=== PATIENT | female | born 1935 | race Caucasian/White ===

== ENCOUNTER 2018-03-22 06:18 | Inpatient (IN) ==
--- NOTE | 2018-03-13 13:35 | Anesthesiology Consultation ---
Date of Service March 13, 2018 Assessment & Plan (1) Encounter for pre-operative examination: Plan: Cardiology clearance 02/12/2018: "Currently she is stable from a cardiac standpoint to proceed with planned surgery. Cardiac testing would not be required prior to surgery. Would recommend continue beta-fab throughout the perioperative period." Chart Review Chart Review: Acceptable Risk for Surgery and Patient seen in Pre Admission Testing Teaching & Discussion Instructed NPO after midnight before surgery, except medications with 15 cc of water. Medication instructions provided according to the PAT guidelines. History Surgery Operation Date: 03/22/18 08:20 Proposed Procedures p Right Constrained Total Hip Arthroplasty - Faustino Larios MD Height/Weight Height: 5 ft 1 in Weight: 75.9 kg Allergies Allergy/AdvReac Type Severity Reaction Status Date / Time chlorhexidine Allergy Severe SEVERE Verified 03/13/18 14:11 HIVES WITH CHLORAPREP adhesive tape AdvReac Unknown Rash Verified 03/06/18 10:40 codeine AdvReac Unknown constipatio Verified 03/06/18 10:37 n morphine AdvReac Unknown gi upsets Verified 03/06/18 10:40 Medications Home Medications Medication Instructions Recorded Confirmed Last Taken Wobenzyme 3 tab PO QAM 03/06/18 03/06/18 Unknown albuterol sulfate 0.63 mg INHALATION BID 03/06/18 03/06/18 Unknown aspirin [Aspirin Low Dose] 81 mg PO QAM 03/06/18 03/06/18 Unknown carvedilol 3.125 mg PO BID 03/06/18 03/06/18 Unknown cetirizine 5 mg PO QAM 03/06/18 03/06/18 Unknown coenzyme Q10 [CoQ-10] 600 mg PO QAM 03/06/18 03/06/18 Unknown diclofenac sodium 75 mg PO BID 03/06/18 03/06/18 Unknown diclofenac sodium [Voltaren] 2 g TOPICAL QID PRN 03/06/18 03/06/18 Unknown elderberry fruit and flower 1 cap PO QAM 03/06/18 03/06/18 Unknown esomeprazole magnesium [Nexium] 40 mg PO QAM 18 03/06/18 Unknown fish,bora,flax oils-om3,6,9no1 1 tab PO QAM 03/06/18 03/06/18 Unknown [[place] 3-6-9] fluticasone-salmeterol [Advair HFA] 2 puff INHALATION BID 03/06/18 03/06/18 Unknown [id number] 1 tab PO QAM 03/06/18 03/06/18 Unknown [Muyidh-Kvkhi-UJQ (with antiox)] levalbuterol tartrate [Xopenex HFA] 1 inh INHALATION Q6H PRN 03/06/18 03/06/18 Unknown meclizine 12.5 mg PO TID PRN 03/06/18 03/06/18 Unknown montelukast [Singulair] 10 mg PO PM 03/06/18 03/06/18 Unknown multivitamin 1 tab PO QAM 03/06/18 03/06/18 Unknown polyethylene glycol 3350 [Miralax] 1 tbsp PO QAM 03/06/18 03/06/18 Unknown tiotropium bromide [Spiriva with 2 puff INHALATION QAM 03/06/18 03/06/18 Unknown HandiHaler] vitamin K2 40 mcg PO QAM 03/06/18 03/06/18 Unknown mirabegron [Myrbetriq] 25 mg PO HS 03/13/18 03/13/18 Unknown Past Medical History Medical History Afib Paroxysmal. Pt is anticoagulated with ASA 81mg only. She has declined additional anticoagulation from cardiology and is aware of increased risk. Asthma Chronic obstructive pulmonary disease Daily Spiriva and Advair, + albuterol BID Hx of gastroesophageal reflux (GERD) Hx of hiatal hernia Hx of vertigo Nocturia Osteoarthritis Urgency-frequency syndrome States was on medicine to help , but no longer. Also has stress incontinence Past Surgical History Surgical History History of ankle surgery left History of bunionectomy of left great toe History of esophageal dilatation History of hysterectomy ovaries remain Hx of bladder repair surgery Hx of cataract Hx of colonoscopy Hx of rotator cuff surgery right Past Anesthesia History No Hx of Anesthesia Complications (other than PONV) and No Family Hx of Anesthesia Complications (granddaughter PONV) History of PONV Yes (Severe, multiple episodes.) Motion Sickness Screening History of Motion Sickness: No Social History Smoking Status: Never smoker Do You Dip or Chew Tobacco: No Hx Alcohol Use: Yes Alcohol type: beer alcohol intake frequency: holidays/special occasions only Hx Substance Use: No Exercise / Class Metabolic Activity III < 4 Walking/Shop/Light housework (no SOB or CP with ambulation. [place] with walking up hill to garden.) Review of Systems Pt denies any recent chest pain, shortness of breath, palpitations, cough, fever or URI. +occ palpitations, +sinus congestion. Physical Exam Vital Signs BP: 156/84 P: 62bpm SPO2: 96% RA T: 98.1 F R: 16 ENMT Mouth: + dentures (partial upper); no chipped teeth and no loose teeth Thyromental Distance: > or= 3.5 Finger Breadths (3.5) Mallampati Class: I Neck normal visual inspection; neck extension not limited Respiratory Auscultation: lungs clear to auscultation bilaterally Cardiovascular Rate/Rhythm: regular rate and regular rhythm Heart Sounds: + murmur (I/ INDY RSB loudest) Vessels: no carotid bruit Extremities: no edema Testing Electrocardiogram Date: 03/13/18 Findings: + SB @ (57) and + RBBB Chest X-Ray Date: 03/13/18 1. Mild cardiomegaly. 2. Trace bilateral pleural effusions and bibasilar linear densities. This favors subsegmental atelectasis. 3. Mild emphysema. Echocardiogram Date: 07/05/17 EF: 60% Mild aortic valve stenosis (SHRERIE 2.73 cm, mean gradient 11.2 mmHg). Normal left ventricular size with normal EF. Mild and perhaps moderate aortic insufficiency. Uniformly increased forward flow velocities suggesting a hyperdynamic circulatory state. Prominent pressures upper limits of normal suggesting high cardiac output. Laboratory Results 03/13/18 14:38 03/13/18 14:38 Blood Type A Negative 03/13/18 14:38 Antibody Screen POSITIVE A 03/13/18 14:38 PT 10.2 Seconds (9.0-12.0) 03/13/18 14:38 INR 1.0 (0.9-1.1) 03/13/18 14:38 APTT 25.9 Seconds (21.0-31.0) 03/13/18 14:38 Hemoglobin A1c 5.9 % (4.5-5.6) H 03/13/18 14:38 Urine Color Yellow 03/13/18 Unknown Urine Appearance Clear (Clear) 03/13/18 Unknown Urine pH 7.0 (4.5-7.5) 03/13/18 Unknown Ur Specific [place] 1.008 (1.000-1.030) 03/13/18 Unknown Urine Protein Negative (Negative) 03/13/18 Unknown Urine Glucose (UA) Negative (Negative) 03/13/18 Unknown Urine Ketones Negative (Negative) 03/13/18 Unknown Urine Nitrite Negative (Negative) 03/13/18 Unknown Ur Leukocyte Esterase Negative (Negative) 03/13/18 Unknown *Spoke to Matias at [facility] re: positive antibodies. No further action needed at this time.
--- NOTE | 2018-03-13 14:35 | PAT Medication Instructions ---
Medication Instructions Date of Service March 13, 2018 Home Medications Wobenzyme 3 tab PO QAM albuterol sulfate 0.63 mg INHALATION BID aspirin [Aspirin Low Dose] 81 mg PO QAM carvedilol 3.125 mg PO BID cetirizine 5 mg PO QAM coenzyme Q10 [CoQ-10] 600 mg PO QAM diclofenac sodium 75 mg PO BID diclofenac sodium [Voltaren] 2 g TOPICAL QID PRN elderberry fruit and flower 1 cap PO QAM esomeprazole magnesium [Nexium] 40 mg PO QAM [[place] 3-6-9] 1 tab PO QAM fluticasone-salmeterol [Advair HFA] 2 puff INHALATION BID [id number] 1 tab PO QAM levalbuterol tartrate [Xopenex HFA] 1 inh INHALATION Q6H PRN meclizine 12.5 mg PO TID PRN montelukast [Singulair] 10 mg PO PM multivitamin 1 tab PO QAM polyethylene glycol 3350 [Miralax] 1 tbsp PO QAM tiotropium bromide [Spiriva] 2 puff INHALATION QAM vitamin K2 40 mcg PO QAM mirabegron [Myrbetriq] 25 mg PO HS ASK your surgeon for instructions diclofenac sodium 75 mg PO BID diclofenac sodium [Voltaren] 2 g TOPICAL QID PRN STOP taking 2 weeks before surgery Wobenzyme 3 tab PO QAM coenzyme Q10 [CoQ-10] 600 mg PO QAM elderberry fruit and flower 1 cap PO QAM [[place] 3-6-9] 1 tab PO QAM [id number] 1 tab PO QAM *If surgery is within 2 weeks, stop taking as soon as possible. DO NOT take the morning of surgery cetirizine 5 mg PO QAM multivitamin 1 tab PO QAM polyethylene glycol 3350 [Miralax] 1 tbsp PO QAM vitamin K2 40 mcg PO QAM Take morning of surgery With a small sip of water, OTHERWISE NOTHING TO EAT OR DRINK AFTER MIDNIGHT: albuterol sulfate 0.63 mg INHALATION BID aspirin [Aspirin Low Dose] 81 mg PO QAM carvedilol 3.125 mg PO BID esomeprazole magnesium [Nexium] 40 mg PO QAM fluticasone-salmeterol [Advair HFA] 2 puff INHALATION BID levalbuterol tartrate [Xopenex HFA] 1 inh INHALATION Q6H PRN (if needed, and bring with you to the hospital) meclizine 12.5 mg PO TID PRN (if needed) tiotropium bromide [Spiriva] 2 puff INHALATION QAM Take evening before surgery albuterol sulfate 0.63 mg INHALATION BID carvedilol 3.125 mg PO BID fluticasone-salmeterol [Advair HFA] 2 puff INHALATION BID levalbuterol tartrate [Xopenex HFA] 1 inh INHALATION Q6H PRN (if needed) meclizine 12.5 mg PO TID PRN (if needed) montelukast [Singulair] 10 mg PO PM mirabegron [Myrbetriq] 25 mg PO HS Other Notes If you have any questions please call us at [phone] or [phone] or [phone] or [phone]
[2018-03-13 15:00] LABS: Basophils # (auto) 0.02 K/uL (0-0.2); Basophils % (auto) 0.4 %; Eosinophils # (auto) 0.08 K/uL (0-0.5); Eosinophils % (auto) 1.6 %; Hematocrit (blood only) 39.3 % (42-52); Hemoglobin 12.5 g/dL (14.0-18.0); Lymphocytes # (auto) 1.33 K/uL (1.2-3.4); Lymphocytes % (auto) 26.2 %; Mean Corpuscular Hgb Conc 31.8 g/dL (32-36); Mean Platelet Volume 9.9 fL (7.4-10.4); Monocytes # (auto) 0.54 K/uL (0.11-0.59); Monocytes % (auto) 10.6 %; Neutrophils # (auto) 3.11 K/uL (1.4-6.5); Neutrophils % (auto) 61.2 %; Platelet Count 176 K/uL (130-400); RDW Coefficient of Variation 15.2 % (11.5-14.5); RDW Standard Deviation 51.2 fL (36.4-46.3); Red Blood Count 4.27 M/uL (4.7-6.1); White Blood Count 5.08 K/uL (4.8-10.8)
[2018-03-13 15:04] LABS: Appearance Urine Clear (Clear); Bilirubin Urine Negative (Negative); Color Urine Yellow; Glucose Urine UA Negative (Negative); Ketones Urine Negative (Negative); Leukocyte Esterase Urine Negative (Negative); Nitrite Urine Negative (Negative); Protein Urine Negative (Negative); Specific Gravity Urine 1.008 (1.000-1.030); Urobilinogen Urine Negative (Negative)
--- NOTE | 2018-03-13 15:15 | XRay Report ---
XR chest Pre-admission PA/Lat HISTORY: Preop. COMPARISON: None. FINDINGS: The heart is mildly enlarged. No pneumothorax. The lungs are mildly hyperexpanded with apic al predominant emphysema changes. Bibasilar linear densities and trace bilateral pleural effusions. T he upper lung zones remain clear. IMPRESSION: 1. Mild cardiomegaly. 2. Trace bilateral pleural effusions and bibasilar linear densities. This favors subsegmental atelect asis. 3. Mild emphysema. Electronically signed by: Juan Moon M.D. 03/13/2018 3:13 PM
[2018-03-13 15:19] LABS: Partial Thromboplastin Time 25.9 Seconds (21.0-31.0); Prothrombin Time 10.2 Seconds (9.0-12.0)
[2018-03-13 15:53] LABS: Albumin Level 3.5 gm/dl (3.4-5.0); Calcium 9.1 mg/dl (8.5-10.1); Creatinine Clr Calc Pharmacy 78.8 ml/min; Est GFR (African American) 106.3; Est GFR (Non-African American) 91.7; Potassium 4.2 mmol/L (3.5-5.1)
[2018-03-14 06:05] LABS: Estimated Average Glucose 123 mg/dl
--- NOTE | 2018-03-21 13:03 | History and Physical Report ---
DATE OF ADMISSION: 03/22/2018 CHIEF COMPLAINT: Right hip pain. HISTORY OF PRESENT ILLNESS: The patient is an 82-year-old female seen and evaluated in our office for right hip pain and disability. She had an MRI which was just consistent with osteoarthritis. PAST MEDICAL HISTORY: Heart murmur, asthma, COPD. PAST SURGICAL HISTORY: Unknown. MEDICATIONS: Singulair 10 mg daily, multivitamin daily, glucosamine and chondroitin daily, atenolol 50 mg daily, omega-3 fatty acid 1000 mg daily, cetirizine 10 mg daily, aspirin 81 mg daily, Spiriva 1 inhalation daily, Xopenex 2 puffs q. 6 hours p.r.n., Voltaren gel, Advair 2 puffs 2 times daily, CoQ10 100 mg daily, carvedilol 3.125 mg 2 times daily. ALLERGIES: MORPHINE, ADHESIVES, LATEX. SOCIAL HISTORY AND REVIEW OF SYSTEMS: Noncontributory. PHYSICAL EXAMINATION: GENERAL: Well-nourished, well-developed elderly female who appears her stated age. HEENT: Normocephalic, atraumatic, extraocular movements intact, oropharynx pink and moist. NECK: Supple without adenopathy. LUNGS: Clear to auscultation bilaterally. HEART: Regular rate and rhythm. ABDOMEN: Soft, nontender, nondistended. EXTREMITIES: The upper extremities are within normal limits. The right hip demonstrates limited range of motion. There is limitation of active and passive internal/external rotation with pain at end range. X-RAYS: X-rays were reviewed. She has moderately severe osteoarthritis with near complete loss of the joint space. There are osteophytes about her acetabulum. ASSESSMENT: Right hip degenerative joint disease. PLAN: Risks versus benefits were discussed, consent was obtained. The patient's primary care physician is Dr. Saleh. We will proceed with right total hip arthroplasty as indicated. The patient desires to proceed with a constrained hip arthroplasty due to a family member having a problem with hip dislocation.
[~2018-03-22 06:18] MED LIST: ACETAMINOPHEN 500 MG TAB PO SCH; CEFAZOLIN 1000MG 1,000 MG/7.5 ML SYR IV SCH; CeleBREX 200 MG CAP PO SCH; FAMOTIDINE 20 MG TAB PO SCH; GABAPENTIN 300 MG PO SCH; METOCLOPRAMIDE HCL 10 MG TABLET PO SCH; ROPIVACAINE 0.5% HCL/PF 150 MG, BUPIVACAINE 0.5% MPF 30 ML, EPINEPHrine 30MG/30ML (OR U... INFIL SCH; dexAMETHasone 4 MG TAB PO SCH
[2018-03-22] MEDS ORDERED: BUPIVACAINE 0.5 % 5 MG/1 ML PF 10ML VIAL ONE (06:30)
[2018-03-22] MEDS: LR 500ML BOLUS, THEN 15ML/HR IV SCH ×3 (07:02→15:09)
[2018-03-22] MEDS ORDERED: fentaNYL citrate 100 MCG/2 ML VIAL IV PRN (07:35)
[2018-03-22] MEDS ORDERED: ATROPINE SULFATE 0.1 MG/ML 5ML SYR IV PRN (07:35)
[2018-03-22] MEDS ORDERED: ePHEDrine sulfate 50 MG/ML AMP IV PRN (07:35)
[2018-03-22] MEDS ORDERED: LABETALOL HCL IV 5 MG/ML 20ML IV PRN (07:35)
[2018-03-22] MEDS ORDERED: PHENYLEPHRINE 100MCG/ML 5ML SYR IV PRN (07:35)
[2018-03-22] MEDS ORDERED: ONDANSETRON INJ 2 MG/ML 2 ML VIAL IV PRN ×2 (07:35→12:32)
[2018-03-22] MEDS ORDERED: MIDAZOLAM HCL 1 MG/ML 2ML VIAL ONE (07:39)
[2018-03-22] MEDS ORDERED: fentaNYL citrate 100 MCG/2 ML VIAL ONE (07:39)
--- NOTE | 2018-03-22 08:00 | History & Physical Bridge Note ---
Date of Service March 22, 2018 History & Physical Bridge Note I have examined the patient, reviewed the History & Physical and in the interval since the performance of the History & Physical I have noted the following changes of clinical significance: no changes noted
[2018-03-22] MEDS ORDERED: ORTHO JOINT ANESTHETIC ONE (09:10)
[2018-03-22] MEDS ORDERED: POVIDONE-IODINE OP SOLN 30 ML BTL ONE (09:10)
[2018-03-22] MEDS ORDERED: BACITRACIN INJ 50,000 UNIT VIAL ONE (09:10)
[2018-03-22] MEDS ORDERED: ONDANSETRON INJ 2 MG/ML 2 ML VIAL ONE (10:03)
[2018-03-22] MEDS ORDERED: DEXAMETHASONE SOD INJ 4 MG/ML VIAL ONE (10:03)
--- NOTE | 2018-03-22 10:44 | Operative Report ---
Post Operative Report Date of Surgery March 22, 2018 Pre & Post Diagnosis Operation Date: 03/22/18 09:35 Pre-Op Diagnosis: Right Hip Degenerative Joint Disease Post-Op Diagnosis: Right Hip Degenerative Joint Disease Procedure Operation Date: 03/22/18 09:35 Actual Procedures p Right Constrained Total Hip Arthroplasty(Right) - Faustino Larios MD Surgeon Faustino Larios MD Planning Manager Marija Estimated Blood Loss 100 Findings Consistent with Post-Op Diagnosis Specimens Femoral head Anesthesia Type Spinal Complications none Disposition Accompanied Patient To Recovery: No Disposition: Recovery Room Indications Hip pain Description of Procedure Patient was placed in the left lateral decubitus position the right hip was prepped and draped in usual sterile manner. A Suhail Langenbeck incision was made subcutaneous tissue was sharply dissected lateral cartilages hemostasis. Fascia site was incised throughout the length of the wound and a partial tear of the hip abductors were noted. A stitch was placed beneath the piriformis and short external rotators and these were divided from the posterior aspect of the femur using electrocautery the capsule was incised a large hip effusion was noted and drained. The hip was dislocated using flexion abduction and internal rotation. Assisting in the dislocation was a Trevino elevator. The femoral neck was osteotomized at the appropriate level and the femoral head was removed. Degenerative changes in excess of x-ray changes was noted. Extension of the acetabulum where the retractors were placed in the labrum and capsule were removed were carried up to size 52. Impacted in position and fixed using a single 30 mm cancellous bone screw. Stable fixation was noted. The attention was then was again turned to the femur where a box osteotome was used to gain access to the femoral canal. A tapered canal finder was utilized as well as a lateralizing reamer and sequential aspirins were taken up to a size 3. Gave good fit and fill. The trial cup for the constrained liner was placed and the hip was relocated using a 22 mm femoral head and was found to have good reproduction of soft tissue tension and stability. The trial was dislocated rasp was removed trial cup was removed and the hip was irrigated the acetabular liner was cleared of blood and debris and the femoral acetabulum was impacted into position. The femur and a 22 mm head were impacted in position relocated in the constrained liner. Produced a stable and solid construct the wound was thoroughly irrigated once again periarticular joint mix was injected piriformis was repaired to the hip abductors using #1 Vicryl Hemovac drain was placed particular injection was again placed as well as the Betadine soap and the fascia was closed over Hemovac drain. #1 Vicryl used to close close the fascia subcutaneous tissue was closed using 0 Dexon skin was closed with the plan sterile dressing of Adaptic 4 x 4's ABDs and foam tape was applied. Patient tolerated the procedure well. I attest to the content of the Intraoperative Record and any orders documented therein. Any exceptions are noted below.
--- NOTE | 2018-03-22 11:48 | XRay Report ---
XR hip 1V RT w pelvis CLINICAL HISTORY: Postoperative evaluation. COMPARISON: None FINDINGS: Alignment of the total right hip arthroplasty is anatomic. There is an acetabular screw, s kin dora and drains. There is no fracture or unexpected radiopaque foreign body. IMPRESSION: Expected findings following total right hip arthroplasty. Electronically signed by: Ronak Constantino M.D. 03/22/2018 11:47 AM
--- NOTE | 2018-03-22 11:58 | Anesthesiology Progress Note ---
Date of Service March 22, 2018 Anesthesia Post Procedure Vital Signs Vital Signs: Temp Pulse Pulse Resp BP Pulse Ox 03/22/18 11:50 36.4 C L 48 L 16 118/70 99 03/22/18 11:40 71 16 118/60 100 03/22/18 11:30 47 L 16 92/56 L 100 03/22/18 11:20 54 L 16 110/68 100 03/22/18 11:13 36.6 C 78 16 110/65 100 03/22/18 07:04 36.5 C 66 18 131/80 96 Notes Mental Status: alert / awake / arousable Patient Amnestic to Procedure: Yes Nausea / Vomiting: adequately controlled Pain: adequately controlled Airway Patency, RR, SpO2: stable & adequate BP & HR: stable & adequate Hydration State: stable & adequate Neuraxial Anesthesia: was administered and sensory block is resolving Anesthetic Complications: no major complications apparent and Pt Satisfied with anesthetic care
[2018-03-22] MEDS ORDERED: OXYCODONE HCL IR 5 MG TAB (IMMEDIATE RELEASE) PO PRN (12:32)
[2018-03-22] MEDS ORDERED: METOCLOPRAMIDE HCL INJ 5 MG/ML 2 ML VIAL IV PRN (12:32)
[2018-03-22] MEDS ORDERED: LEVALBUTEROL TARTRATE 15 GM HFA.AER.AD INH PRN (12:32)
[2018-03-22] MEDS ORDERED: ALUMINUM/MAGNESIUM SUSP 30 ML UDC PO PRN (12:32)
[2018-03-22] MEDS ORDERED: ZOLPIDEM TARTRATE 5 MG TAB PO PRN (12:32)
[2018-03-22] MEDS ORDERED: MAGNESIUM HYDROXIDE SUSP 30 ML UDC PO PRN (12:32)
[2018-03-22] MEDS: FERROUS GLUCONATE 324 MG TAB PO SCH ×2 (12:59→17:34)
[2018-03-22] MEDS: D5W AND 1/2NSS + 20MEQ KCL 20 MEQ/1,000 ML BAG IV SCH ×2 (13:19→22:38)
[2018-03-22] MEDS: KETOROLAC TROMETHAMINE 15 MG/ML VIAL IV SCH ×2 (13:19→20:29)
--- NOTE | 2018-03-22 15:10 | Consultation ---
Date of Consultation March 22, 2018 Assessment & Plan (1) Status post total hip replacement, right: S/p right hip SEAN with Dr. Larios on 03/22. - Post-operative management and pain control per primary team (2) Chronic obstructive pulmonary disease: No current shortness of breath or wheezing; however, became slightly hypoxemic when O2 was turned off. Put back on 2L NC with good response. - Encouraged incentive spirometry - Wean O2 as able - Continue home inhalers and medications - DuoNeb PRN (3) Afib: Paroxysmal. EKG on admission showed sinus bradycardia. Reports being on atenolol for years, but then had a heart rate to the 40s and was switched to carvedilol. Reports often forgetting her evening dose. After surgery, HR was ~ 50 bpm, but now up to her baseline of 60. - Continue Coreg, though could consider switching to Toprol if we're lookign for a rate-control med that would affect her BP less and be daily. - Continue ASA 81mg PO BID per orthopedics - Back to ASA 81mg daily as her form of anticoagulation as she has declined others in the past (4) Hypertension: On Coreg for rate-control. Could consider switching to Toprol for easier dosing and because her BP is generally low-normal here so far (100-120/60). - Continue Coreg for now (5) DVT prophylaxis: ASA 81mg PO BID per orthopedics History of Present Illness Reason for Consultation: Medical management Requesting Physician: Faustino Larios MD Attending Physician: Faustino Larios MD History of Present Illness 82yo F w/ hx of osteoarthritis who presents after a right SEAN with Dr. Larios on 03/22. Per patient, had been having worsening right hip pain. Already had her knees replaced, so plan for right SEAN. After surgery, she reports no major pain, denies fevers/chills, chest pain, shortness of breath, abdominal pain, nausea, or vomiting. She reports that she has been taking carvedilol for an unknown "heart" reason, but denies any history of [place]. She may have atrial fibrillation as she reports she was told to take flecainide at one point, but refused. At present she has no lightheadedness or dizziness, despite her HR reported to be in the 50s after surgery. Allergies Allergy/AdvReac Type Severity Reaction Status Date / Time chlorhexidine Allergy Severe SEVERE Verified 03/22/18 06:54 HIVES WITH CHLORAPREP adhesive tape AdvReac Unknown Rash Verified 03/22/18 06:54 codeine AdvReac Unknown constipatio Verified 03/22/18 06:54 n morphine AdvReac Unknown gi upsets Verified 03/22/18 06:54 Home Medications Home Medications Medication Instructions Recorded Confirmed Type Wobenzyme 3 tab PO QAM 03/06/18 03/22/18 History albuterol sulfate 0.63 mg INHALATION BID 03/06/18 03/22/18 History aspirin [Aspirin Low Dose] 81 mg PO QAM 03/06/18 03/22/18 History carvedilol 3.125 mg PO BID 03/06/18 03/22/18 History cetirizine 5 mg PO QAM 03/06/18 03/22/18 History coenzyme Q10 [CoQ-10] 600 mg PO QAM 03/06/18 03/22/18 History diclofenac sodium 75 mg PO BID 03/06/18 03/22/18 History diclofenac sodium [Voltaren] 2 g TOPICAL QID PRN 03/06/18 03/22/18 History elderberry fruit and flower 1 cap PO QAM 03/06/18 03/22/18 History esomeprazole magnesium [Nexium] 40 mg PO QAM 03/06/18 03/22/18 History fish,bora,flax oils-om3,6,9no1 1 tab PO QAM 03/06/18 03/22/18 History [[place] 3-6-9] fluticasone-salmeterol [Advair HFA] 2 puff INHALATION BID 03/06/18 03/22/18 History [id number] 1 tab PO QAM 03/06/18 03/22/18 History [Ikshww-Zlras-TNN (with antiox)] levalbuterol tartrate [Xopenex HFA] 1 inh INHALATION Q6H PRN 03/06/18 03/22/18 History meclizine 12.5 mg PO TID PRN 03/06/18 03/06/18 History montelukast [Singulair] 10 mg PO PM 03/06/18 03/22/18 History multivitamin 1 tab PO QAM 03/06/18 03/22/18 History polyethylene glycol 3350 [Miralax] 1 tbsp PO QAM 03/06/18 03/22/18 History tiotropium bromide [Spiriva with 2 puff INHALATION QAM 03/06/18 03/22/18 History HandiHaler] vitamin K2 40 mcg PO QAM 03/06/18 03/22/18 History mirabegron [Myrbetriq] 25 mg PO HS 03/13/18 03/22/18 History Patient History Medical History Afib Paroxysmal. Pt is anticoagulated with ASA 81mg only. She has declined additional anticoagulation from cardiology and is aware of increased risk. Asthma Chronic obstructive pulmonary disease Daily Spiriva and Advair, + albuterol BID Hx of gastroesophageal reflux (GERD) Hx of hiatal hernia Hx of vertigo Nocturia Osteoarthritis Urgency-frequency syndrome States was on medicine to help , but no longer. Also has stress incontinence Surgical History History of ankle surgery left History of bunionectomy of left great toe History of esophageal dilatation History of hysterectomy ovaries remain Hx of bladder repair surgery Hx of cataract Hx of colonoscopy Hx of rotator cuff surgery right Family History Grandfather Social History Current Living Situation: Alone Other Information That Helps Us Care for You: No Feels Safe at Home: Yes Safety Concerns: Feels Safe At This Time Smoking Status: Never smoker Do You Dip or Chew Tobacco: No Hx Alcohol Use: Yes Alcohol type: beer Alcohol Intake Frequency: holidays/ special occasions only Hx Substance Use: No Beliefs That Will Affect Care: None Preferred Language: Khmer Communication Ability: Effective Review of Systems Constitutional: no fever, no chills and no sweats Eyes: no diplopia Ear, Nose, Mouth, Throat: no ear trauma, no nasal discharge and no dental pain Respiratory: no cough, no chest congestion and no dyspnea Cardiovascular: no chest pain, no dyspnea on exertion, no palpitations and no syncope Gastrointestinal: no abdominal pain, no belching, no constipation, no diarrhea/ loose stools, no blood in stools and no melena Musculoskeletal: no back pain, no joint pain and no muscle weakness Integumentary: no rash, no skin ulcer and no erythema Neurologic: no generalized weakness, no loss of sensation, no numbness and no paresthesia Psychiatric: no depression and no anxiety Endocrine: no fatigue, no polydipsia and no polyphagia Physical Exam 2 Vital Signs (Past 24 Hours): Last Vital Signs Temp 36.6 C 03/22/18 14:16 Pulse 60 03/22/18 14:16 Resp 16 03/22/18 14:16 BP 107/61 03/22/18 14:16 Pulse Ox 100 03/22/18 14:16 Constitutional: WD/WN, vitals as above Eyes: EOM intact bilaterally; no conjunctival abnormality ENMT: external ear and nose normal, oropharynx normal Neck: trachea midline, no thyromegaly normal visual inspection Respiratory: normal respiratory effort, lungs clear to auscultation no respiratory distress Cardiovascular: RRR, no murmur, no edema Gastrointestinal (Abdomen): Inspection/Auscultation: abdomen normal to inspection; abdomen not distended Musculoskeletal: Head/Neck/Chest: normocephalic and head atraumatic Hip: + hip abnormal to inpsection (Right bandaged) Skin: no rashes, warm and dry Neurologic: moves all extremities and awake Psychiatric: Orientation: alert, oriented to person and cooperative _ (1) Chronic obstructive pulmonary disease COPD type: unspecified COPD Qualified Code(s): J44.9 - Chronic obstructive pulmonary disease, unspecified (2) Afib Atrial fibrillation type: paroxysmal Qualified Code(s): I48.0 - Paroxysmal atrial fibrillation (3) Hypertension Hypertension type: essential hypertension Qualified Code(s): I10 - Essential (primary) hypertension
[2018-03-22] MEDS: ACETAMINOPHEN 500 MG TAB PO SCH (16:07)
[2018-03-22] MEDS: CEFAZOLIN 1000MG 1,000 MG/7.5 ML SYR IV SCH (17:34)
[2018-03-22] MEDS ORDERED: COUGH DROP (SUGAR FREE) LOZ 24 LOZ/1 BOX BUCCAL PRN (18:46)
[2018-03-22] MEDS ORDERED: COUGH DROP (SUGAR FREE) LOZ 24 LOZ/1 BOX BUCCAL ONE (19:08)
[2018-03-22] MEDS: FLUTICASONE/SALMETEROL 250/50 (ADVAIR) 14 PUFF/1 INHALER INH SCH (20:29)
[2018-03-22] MEDS: DOCUSATE SODIUM 100 MG CAP PO SCH (20:30)
[2018-03-22] MEDS: MIRABEGRON ER 25 MG TAB PO SCH (20:32)
[2018-03-22] MEDS: ASPIRIN 81 MG ECTAB PO SCH (20:32)
[2018-03-22] MEDS: MONTELUKAST SODIUM 10 MG TABLET PO SCH (20:33)
[2018-03-22] MEDS: CARVEDILOL 3.125 MG TAB PO SCH (20:44)
[2018-03-23] MEDS: KETOROLAC TROMETHAMINE 15 MG/ML VIAL IV SCH ×2 (00:05→06:31)
[2018-03-23] MEDS: ACETAMINOPHEN 500 MG TAB PO SCH ×3 (00:06→16:31)
[2018-03-23] MEDS: CEFAZOLIN 1000MG 1,000 MG/7.5 ML SYR IV SCH (01:31)
[2018-03-23 07:32] LABS: Hematocrit (blood only) 29.7 % (37-47); Hemoglobin 9.7 g/dL (12.0-16.0); Immature Granulocytes # (auto) 0.02 K/uL (0.00-0.02); Immature Granulocytes % (auto) 0.3 %; Lymphocytes % (auto) 10.2 %; Mean Corpuscular Hgb Conc 32.7 g/dL (32-36); Mean Corpuscular Volume 91.7 fL (80-100); Mean Platelet Volume 9.4 fL (7.4-10.4); Monocytes # (auto) 0.75 K/uL (0.11-0.59); Monocytes % (auto) 10.9 %; Neutrophils # (auto) 5.41 K/uL (1.4-6.5); Neutrophils % (auto) 78.6 %; Platelet Count 149 K/uL (130-400); RDW Coefficient of Variation 14.5 % (11.5-14.5); RDW Standard Deviation 49.3 fL (36.4-46.3); Red Blood Count 3.24 M/uL (4.2-5.4); White Blood Count 6.88 K/uL (4.8-10.8)
--- NOTE | 2018-03-23 07:46 | Anesthesiology Progress Note ---
Date of Service March 23, 2018 Anesthesia Post Procedure Vital Signs Vital Signs: Temp Pulse Pulse Pulse Resp BP Pulse Ox 03/23/18 04:00 36.6 C 64 17 133/71 93 03/22/18 23:30 36.7 C 56 L 95 H 106/56 L 95 03/22/18 20:25 67 100/61 03/22/18 18:35 36.7 C 80 20 99/56 L 94 03/22/18 15:17 36.7 C 62 20 111/68 95 03/22/18 14:16 36.6 C 60 16 107/61 100 03/22/18 12:45 50 L 15 118/58 L 100 03/22/18 12:26 36.3 C L 54 L 16 121/69 98 03/22/18 12:02 36.6 C 49 L 16 121/61 99 03/22/18 11:50 36.4 C L 48 L 16 118/70 99 03/22/18 11:40 71 16 118/60 100 03/22/18 11:30 47 L 16 92/56 L 100 03/22/18 11:20 54 L 16 110/68 100 03/22/18 11:13 36.6 C 78 16 110/65 100 Notes Mental Status: alert / awake / arousable and participated in evaluation Patient Amnestic to Procedure: Yes Nausea / Vomiting: adequately controlled Pain: adequately controlled Airway Patency, RR, SpO2: stable & adequate BP & HR: stable & adequate Hydration State: stable & adequate Neuraxial Anesthesia: was administered and sensory block resolved Anesthetic Complications: no major complications apparent
[2018-03-23] MEDS: PANTOprazole 40 MG TAB PO SCH (07:57)
[2018-03-23] MEDS: MULTIVITAMIN TAB PO SCH (07:57)
[2018-03-23] MEDS: FLUTICASONE/SALMETEROL 250/50 (ADVAIR) 14 PUFF/1 INHALER INH SCH ×2 (07:58→20:49)
[2018-03-23] MEDS: FERROUS GLUCONATE 324 MG TAB PO SCH ×3 (07:58→16:32)
[2018-03-23] MEDS: DOCUSATE SODIUM 100 MG CAP PO SCH ×2 (07:58→20:50)
[2018-03-23] MEDS ORDERED: dexAMETHasone 10 MG in SYRINGE 0 ML IV SCH (08:00)
[2018-03-23] MEDS: ASPIRIN 81 MG ECTAB PO SCH ×2 (08:02→20:50)
[2018-03-23] MEDS: CARVEDILOL 3.125 MG TAB PO SCH ×2 (08:02→20:50)
[2018-03-23] MEDS: CETIRIZINE HCL 10 MG TABLET PO SCH (08:02)
[2018-03-23 08:03] LABS: Albumin Level 2.8 gm/dl (3.4-5.0); Calcium 8.7 mg/dl (8.5-10.1); Creatinine Clr Calc Pharmacy 56.8 ml/min; Est GFR (African American) 92.9; Est GFR (Non-African American) 80.1; Phosphorus 2.7 mg/dl (2.5-4.9); Potassium 4.2 mmol/L (3.5-5.1)
[2018-03-23] MEDS: TIOTROPIUM BROMIDE 5 PUFF/90 MCG INH INH SCH (08:05)
[2018-03-23] MEDS ORDERED: COENZYME Q10 600 MG PO SCH (09:00)
--- NOTE | 2018-03-23 16:09 | Hospitalist Progress Note ---
Date of Service March 23, 2018 Assessment & Plan (1) Status post total hip replacement, right: S/p right hip SEAN with Dr. Larios on 03/22. - Post-operative management and pain control per primary team (2) Chronic obstructive pulmonary disease: No current shortness of breath or wheezing; however, became slightly hypoxemic when O2 was turned off. Put back on 2L NC with good response. By 03/23 , she is off O2 and breathing comfortably on room air. - Encouraged incentive spirometry - Wean O2 as able - Continue home inhalers and medications - DuoNeb PRN (3) Afib: Paroxysmal. EKG on admission showed sinus bradycardia. Reports being on atenolol for years, but then had a heart rate to the 40s and was switched to carvedilol. Reports often forgetting her evening dose. After surgery, HR was ~ 50 bpm, but now up to her baseline of 60. - Continue Coreg. As outpatient, could consider switching to Toprol if she needs a rate-control med that would affect her BP less and be daily. - Continue ASA 81mg PO BID per orthopedics - Back to ASA 81mg daily as her form of anticoagulation as she has declined others in the past (4) Hypertension: On Coreg for rate-control. Could consider switching to Toprol for easier dosing and because her BP is generally low-normal here so far (100-120/60). - Continue Coreg for now (5) DVT prophylaxis: ASA 81mg PO BID per orthopedics Subjective 82yo F w/ hx of HTN s/p right SEAN. Doing great today. Already up and walking around with PT. Minimal pain. Reports no fevers/chills, chest pain, shortness of breath, abdominal pain, nausea, or vomiting. Physical Exam 2 Vital Signs (Past 24 Hours): Last Vital Signs Temp 36.8 C 03/23/18 15:57 Pulse 59 L 03/23/18 15:57 Resp 18 03/23/18 15:57 BP 145/73 H 03/23/18 15:57 Pulse Ox 97 03/23/18 15:57 Constitutional: WD/WN, vitals as above Eyes: EOM intact bilaterally; no conjunctival abnormality ENMT: external ear and nose normal, oropharynx normal Neck: trachea midline, no thyromegaly normal visual inspection Respiratory: normal respiratory effort, lungs clear to auscultation no respiratory distress Cardiovascular: RRR, no murmur, no edema Gastrointestinal (Abdomen): Inspection/Auscultation: abdomen normal to inspection; abdomen not distended Musculoskeletal: Head/Neck/Chest: normocephalic and head atraumatic Hip: + hip abnormal to inpsection (Right bandaged) Skin: no rashes, warm and dry Neurologic: moves all extremities and awake Psychiatric: Orientation: alert, oriented to person and cooperative _ (1) Chronic obstructive pulmonary disease COPD type: unspecified COPD Chronic bronchitis type: Emphysema type: Qualified Code(s): J44.9 - Chronic obstructive pulmonary disease, unspecified (2) Afib Atrial fibrillation type: paroxysmal Qualified Code(s): I48.0 - Paroxysmal atrial fibrillation (3) Hypertension Hypertension type: essential hypertension Qualified Code(s): I10 - Essential (primary) hypertension
[2018-03-23] MEDS: POLYETHYLENE (MIRALAX) 17 GM PACK PO SCH (18:17)
[2018-03-23] MEDS: MONTELUKAST SODIUM 10 MG TABLET PO SCH (20:51)
[2018-03-23] MEDS: MIRABEGRON ER 25 MG TAB PO SCH (20:51)
[2018-03-24] MEDS: ACETAMINOPHEN 500 MG TAB PO SCH ×2 (00:03→08:30)
--- NOTE | 2018-03-24 02:50 | Progress Note ---
DATE: 03/23/2018 CHIEF COMPLAINT: Right hip pain. HISTORY OF PRESENT ILLNESS: The patient is status post a right hip replacement, postoperative day 1. She is doing very well, was able to participate in physical therapy, complaining of very little discomfort, just incisional soreness. Hemoglobin 9.7. PHYSICAL EXAMINATION: Equal leg lengths. Dressing clean, dry and intact. Drain with minimal output. ASSESSMENT: Total hip, postop day 1, doing well. PLAN: Discontinue drain this evening. Dressing change tomorrow. Discharge after physical therapy session tomorrow.
[2018-03-24 05:34] LABS: Hematocrit (blood only) 29.6 % (37-47); Hemoglobin 9.8 g/dL (12.0-16.0); Mean Corpuscular Hgb Conc 33.1 g/dL (32-36); Mean Corpuscular Volume 91.4 fL (80-100); Mean Platelet Volume 9.5 fL (7.4-10.4); Nucleated RBC # (auto) 0.02 K/uL (0-0); Nucleated RBC % (auto) 0.3 %; Platelet Count 149 K/uL (130-400); RDW Standard Deviation 50.6 fL (36.4-46.3); Red Blood Count 3.24 M/uL (4.2-5.4); White Blood Count 6.59 K/uL (4.8-10.8)
[2018-03-24 07:24] VITALS: BP 147/73; TEMP 98.4; O2SAT 92
--- NOTE | 2018-03-24 07:49 | Orthopedic Progress Note ---
Date of Service March 24, 2018 Assessment & Plan (1) Status post total hip replacement, right: POD#2 right SEAN -Pain managment -PT/OT -DVT prophylaxis -D/C planning-home with home health, possibly later today if PT goes well Subjective Patient resting comfortably in bed. Doing well, would like to go home today. No chest pain or sob. Has not had a BM as of yet. Will get dose of Miralax Physical Exam 2 Vital Signs (Past 24 Hours): Last Vital Signs Temp 36.9 C 03/24/18 07:22 Pulse 72 03/24/18 07:22 Resp 18 03/24/18 07:22 BP 147/73 H 03/24/18 07:22 Pulse Ox 92 03/24/18 07:22 Physical Exam: Dressing c/d/i. Toes mobile, sensation intact. No calf tenderness Results & Data Laboratory Results H & H 03/13/18 03/23/18 03/24/18 Range/Units 14:38 07:12 05:16 Hgb 12.5 L 9.7 L 9.8 L (14.0-18.0) g/dL Hct 39.3 L 29.7 L 29.6 L (42-52) % Coagulation 03/13/18 Range/Units 14:38 INR 1.0 (0.9-1.1)
[2018-03-24] MEDS: FERROUS GLUCONATE 324 MG TAB PO SCH ×2 (08:30→12:24)
[2018-03-24] MEDS: MULTIVITAMIN TAB PO SCH (08:31)
[2018-03-24] MEDS: PANTOprazole 40 MG TAB PO SCH (08:31)
[2018-03-24] MEDS: CETIRIZINE HCL 10 MG TABLET PO SCH (08:31)
[2018-03-24] MEDS: FLUTICASONE/SALMETEROL 250/50 (ADVAIR) 14 PUFF/1 INHALER INH SCH (08:31)
[2018-03-24] MEDS: ASPIRIN 81 MG ECTAB PO SCH (08:32)
[2018-03-24] MEDS: DOCUSATE SODIUM 100 MG CAP PO SCH (08:32)
[2018-03-24] MEDS: POLYETHYLENE (MIRALAX) 17 GM PACK PO SCH (08:33)
[2018-03-24] MEDS: TIOTROPIUM BROMIDE 5 PUFF/90 MCG INH INH SCH (08:33)
[2018-03-24] MEDS: CARVEDILOL 3.125 MG TAB PO SCH (08:34)
[2018-03-24 11:34] VITALS: PULSE 51
--- NOTE | 2018-03-28 19:30 | Discharge Summary ---
CHIEF COMPLAINT: Right hip pain. Please see complete history and physical examination. HOSPITAL COURSE: The patient underwent right total hip arthroplasty without complication. She tolerated the procedure well and discharged to recovery room in stable condition. Her postop course is relatively uneventful. Her postoperative pain was reasonably well controlled with a combination of spinal anesthesia, intraoperative joint injection, IV, and oral pain medications. She was started on aspirin for DVT prophylaxis. She also utilized DARREN stockings and SCDs for additional prophylaxis. Her H and H was stable and did not require transfusion. A medical consult was asked for to assist in her postoperative medical management. She did not have any significant postoperative medical issues. Her surgical dressing and drain were discontinued by postoperative day #2, new surgical dressing will remain in place for approximately 7 days postoperative. She tolerated postoperative physical therapy reasonably well. She was ambulating and transferring appropriately. She was observing all total hip precautions. She was discharged home on postop day 2. She will continue her physical therapy at home. She will continue her aspirin for DVT prophylaxis and follow up in our office in approximately 10-14 days for her initial postop evaluation.
== END 2018-03-24 13:37 | disposition home health service (06) | DRG 470 ==
LOC: ASU 06:18 → EDSEX 08:20 → 3E 11:22

== ENCOUNTER 2018-12-13 08:58 | Inpatient (IN) ==
--- NOTE | 2018-11-15 14:30 | PAT Medication Instructions ---
Medication Instructions Date of Service November 15, 2018 Home Medications Advair HFA 2 puff INHALATION BID [place] 3-6-9 1 tab PO QAM Spiriva with HandiHaler 2 puff INHALATION QAM Wobenzyme 3 tab PO QAM albuterol sulfate 0.63 mg INHALATION UD PRN carvedilol 3.125 mg PO BID cetirizine 5 mg PO QAM coenzyme Q10 [CoQ-10] 600 mg PO QAM diclofenac sodium [Voltaren] 2 g TOPICAL QID PRN elderberry fruit and flower 1 cap PO QAM esomeprazole magnesium [Nexium] 40 mg PO QAM [id number] [Jsszcy-Loxft-FMA (with antiox)] 1 tab PO QAM levalbuterol tartrate [Xopenex HFA] 1 inh INHALATION Q6H PRN meclizine 12.5 mg PO TID PRN montelukast [Singulair] 10 mg PO PM multivitamin 1 tab PO QAM polyethylene glycol 3350 [Miralax] 1 tbsp PO QAM Myrbetriq 25 mg PO UD PRN Hempworks 1 dose BID acetaminophen [Pain Reliever] 1,000 mg PO Q8H PRN aspirin [Ecotrin Low Strength] 81 mg PO QAM vitamin K2 50 mcg PO DAILY STOP taking 2 weeks before surgery (or as soon as possible if surgery is within 2 weeks) [place] 3-6-9 1 tab PO QAM coenzyme Q10 [CoQ-10] 600 mg PO QAM [id number] [Zuntbd-Yykgn-BDT (with antiox)] 1 tab PO QAM elderberry fruit and flower 1 cap PO QAM STOP taking 24 hours before surgery diclofenac sodium [Voltaren] 2 g TOPICAL QID PRN DO NOT take the morning of surgery Wobenzyme 3 tab PO QAM cetirizine 5 mg PO QAM multivitamin 1 tab PO QAM polyethylene glycol 3350 [Miralax] 1 tbsp PO QAM Myrbetriq 25 mg PO UD PRN Hempworks 1 dose BID vitamin K2 50 mcg PO DAILY Take morning of surgery With a small sip of water, OTHERWISE NOTHING TO EAT OR DRINK AFTER MIDNIGHT: Advair HFA 2 puff INHALATION BID Spiriva with HandiHaler 2 puff INHALATION QAM albuterol sulfate 0.63 mg INHALATION UD PRN (use if needed; please bring with you to hospital day of surgery if possible) carvedilol 3.125 mg PO BID esomeprazole magnesium [Nexium] 40 mg PO QAM levalbuterol tartrate [Xopenex HFA] 1 inh INHALATION Q6H PRN (if needed) meclizine 12.5 mg PO TID PRN (if needed) acetaminophen [Pain Reliever] 1,000 mg PO Q8H PRN (okay to take up to 4 hours prior to surgery if needed) Take evening before surgery Advair HFA 2 puff INHALATION BID albuterol sulfate 0.63 mg INHALATION UD PRN (if needed) carvedilol 3.125 mg PO BID levalbuterol tartrate [Xopenex HFA] 1 inh INHALATION Q6H PRN (if needed) meclizine 12.5 mg PO TID PRN (if needed) montelukast [Singulair] 10 mg PO PM Myrbetriq 25 mg PO UD PRN (if needed) Hempworks 1 dose BID acetaminophen [Pain Reliever] 1,000 mg PO Q8H PRN (if needed) Other Notes If you have any questions please call us at [phone] or [phone] or [phone] or [phone]
--- NOTE | 2018-11-16 14:33 | Anesthesiology Consultation ---
Date of Service November 16, 2018 Assessment & Plan (1) Encounter for pre-operative examination: Cardiology: 02/12/18: Patient seen by cardio prior to right SEAN (done 03/22/18: SAB x 1 at L3-L4 at [facility]). "Currently she is stable from a cardiac standpoint to proceed with planned surgery. Cardiac testing would not be required prior to surgery. Would recommend continue beta-fab throughout the perioperative period." Chart Review Chart Review: Acceptable Risk for Surgery (pending surgeon-ordered PCP clearance done 11/15 (Dr. Saleh)) and Patient seen in Pre Admission Testing Teaching & Discussion Pre-Anesthesia Teaching/Discussion Notes: Instructed NPO after midnight before surgery,except medications with 15 cc of water. Medication instructions provided according to the PAT guidelines. History Surgery Operation Date: 12/13/18 11:25 Proposed Procedures p Left Total Knee Arthroplasty - Nathan Jung MD Height/Weight Height: 5 ft 2 in Weight: 75 kg Allergies Allergy/AdvReac Type Severity Reaction Status Date / Time chlorhexidine Allergy Severe severe Verified 11/16/18 10:42 hives with chloraprep* adhesive tape Allergy Unknown rash Verified 11/16/18 10:42 morphine AdvReac Severe N/V Verified 11/09/18 09:47 codeine AdvReac Unknown constipatio Verified 11/09/18 09:41 n oxycodone AdvReac Unknown Confusion Verified 11/09/18 09:41 EKG PADS Allergy Unknown mild Uncoded 11/16/18 10:42 redness with extended length of exposure Medications Home Medications Medication Instructions Recorded Confirmed Last Taken Advair HFA 2 puff INHALATION BID 03/06/18 11/09/18 03/22/18 06:00 [place] 3-6-9 1 tab PO QAM 03/06/18 11/09/18 03/14/18 Spiriva with HandiHaler 2 puff INHALATION QAM 03/06/18 11/09/18 03/22/18 06:00 Wobenzyme 3 tab PO QAM 03/06/18 11/09/18 03/14/18 albuterol sulfate 0.63 mg INHALATION UD PRN 03/06/18 11/09/18 03/22/18 05:45 carvedilol 3.125 mg PO BID 03/06/18 11/09/18 11/08/18 cetirizine 5 mg PO QAM 03/06/18 11/09/18 03/14/18 coenzyme Q10 [CoQ-10] 600 mg PO QAM 03/06/18 11/09/18 03/14/18 diclofenac sodium [Voltaren] 2 g TOPICAL QID PRN 03/06/18 11/09/18 03/14/18 elderberry fruit and flower 1 cap PO QAM 03/06/18 11/09/18 03/14/18 esomeprazole magnesium [Nexium] 40 mg PO QAM 03/06/18 11/09/18 11/08/18 [id number] 1 tab PO QAM 03/06/18 11/09/18 03/14/18 [Jwoauy-Kvotz-MTC (with antiox)] levalbuterol tartrate [Xopenex HFA] 1 inh INHALATION Q6H PRN 03/06/18 11/09/18 03/22/18 06:00 meclizine 12.5 mg PO TID PRN 03/06/18 11/09/18 Unknown montelukast [Singulair] 10 mg PO PM 03/06/18 11/09/18 03/20/18 22:00 multivitamin 1 tab PO QAM 03/06/18 11/09/18 03/14/18 polyethylene glycol 3350 [Miralax] 1 tbsp PO QAM 03/06/18 11/09/18 03/14/18 Myrbetriq 25 mg PO UD PRN 03/13/18 11/09/18 Unknown Hempworks 1 dose BID 11/09/18 11/09/18 Unknown acetaminophen [Pain Reliever] 1,000 mg PO Q8H PRN 11/09/18 11/09/18 Unknown aspirin [Ecotrin Low Strength] 81 mg PO QAM 11/09/18 11/09/18 11/08/18 vitamin K2 50 mcg PO DAILY 11/09/18 11/09/18 Unknown Past Medical History Medical History Afib Paroxysmal- on ASA/beta fab (per patient, discussed AC in the past but declined/aware of increased risks) Aortic stenosis Mild aortic valve stenosis (SHERRIE 2.73 cm, mean gradient 11.2 mmHg) Asthma stable Chronic obstructive pulmonary disease stable GERD (gastroesophageal reflux disease) controlled Hx of hiatal hernia Hx of vertigo Nocturia improved Osteoarthritis Urinary, incontinence, stress female improved Exercise / Class Metabolic Activity III < 4 Walking/Shop/Light housework (uses walker/cane PRN) Past Family History Family History Grandfather Past Surgical History Surgical History History of ankle surgery left History of bunionectomy of left great toe History of cardiac cath "YEARS AGO"= NO STENTS History of esophageal dilatation History of hysterectomy History of left cataract surgery History of right cataract surgery History of total right hip arthroplasty Hx of bladder repair surgery Hx of colonoscopy Hx of rotator cuff surgery right Past Anesthesia History No Hx of Anesthesia Complications (except PONV (felt morphine related)) and No Family Hx of Anesthesia Complications History of PONV History of PONV ((felt morphine related)) and Hx of Motion Sickness (controlled with Meclizine PRN) Social History Smoking Status: Never smoker Do You Dip or Chew Tobacco: No Hx Alcohol Use: Yes Alcohol type: beer alcohol intake frequency: holidays/special occasions only Alcohol Intake Frequency Comment: FEW TIMES A YR Hx Substance Use: No substance use type: does not use and other Substance Use Type Other:: "HEMPWORKS" 3 DROPS UNDER TONGUE BID Review of Systems Patient denies chest pain, shortness of breath, cough, wheezing, palpitations. Physical Exam Vital Signs VITALS BP 124/69 P 56 TEMP 97.6 SP02 97%RA RESP 20 PHYSICAL Full neck and c-spine range of motion. Full TMJ range of motion. TMD 3 finger breaths Mallampati Score 2 Dentition: upper partial Lungs: clear throughout to auscultation Cardiac: regular rate and rhythm, I-II/ systolic murmur Spine: normal Carotid arteries: negative bruit Extremities: no edema Testing Laboratory Results 11/16/18 14:42 11/16/18 14:42 PT 10.5 Seconds (9.0-12.0) 11/16/18 14:42 INR 1.0 (0.9-1.1) 11/16/18 14:42 APTT 26.2 Seconds (21.0-31.0) 11/16/18 14:42 Hemoglobin A1c 5.9 % (4.5-5.6) H 11/16/18 14:42 Urine Color Yellow 11/16/18 14:42 Urine Appearance Clear (Clear) 11/16/18 14:42 Urine pH 5.5 (4.5-7.5) 11/16/18 14:42 Ur Specific [place] 1.023 (1.000-1.030) 11/16/18 14:42 Urine Protein Negative (Negative) 11/16/18 14:42 Urine Glucose (UA) Negative (Negative) 11/16/18 14:42 Urine Ketones Negative (Negative) 11/16/18 14:42 Urine Nitrite Negative (Negative) 11/16/18 14:42 Ur Leukocyte Esterase Negative (Negative) 11/16/18 14:42 Blood Type A Negative 11/16/18 14:42 Antibody Screen POSITIVE A 11/16/18 14:42 11/16/18 14:42 Urine Culture - Final Urine,Clean Catch No growth - less than 1,000 colonies/mL. *Blood bank aware of positive antibodies (per blood bank, nothing further needed from our perspective)* Electrocardiogram Date: 03/13/18 SB at 57bpm. RBBB. Chest X-Ray Date: 03/13/18 The heart is mildly enlarged. No pneumothorax. The lungs are mildly hyperexpanded with apical predominant emphysema changes. Bibasilar linear densities and trace bilateral pleural effusions. The upper lung zones remain clear. Echocardiogram Date: 07/05/17 EF: 60% Mild aortic valve stenosis (SHERRIE 2.73 cm, mean gradient 11.2 mmHg). Normal left ventricular size with normal EF. Mild and perhaps moderate aortic insufficiency. Uniformly increased forward flow velocities suggesting a hyperdynamic circulatory state. Prominent pressures upper limits of normal suggesting high cardiac output.
[2018-11-16 16:35] LABS: Basophils # (auto) 0.03 K/uL (0-0.2); Basophils % (auto) 0.7 %; Eosinophils # (auto) 0.27 K/uL (0-0.5); Eosinophils % (auto) 6.3 %; Hematocrit (blood only) 37.8 % (37-47); Hemoglobin 12.4 g/dL (12.0-16.0); Lymphocytes % (auto) 27.8 %; Mean Corpuscular Hemoglobin 29.8 pg (25-34); Mean Corpuscular Hgb Conc 32.8 g/dL (32-36); Mean Corpuscular Volume 90.9 fL (80-100); Mean Platelet Volume 9.9 fL (7.4-10.4); Monocytes # (auto) 0.33 K/uL (0.11-0.59); Monocytes % (auto) 7.6 %; Neutrophils # (auto) 2.49 K/uL (1.4-6.5); Neutrophils % (auto) 57.6 %; Platelet Count 161 K/uL (130-400); RDW Standard Deviation 50.2 fL (36.4-46.3); Red Blood Count 4.16 M/uL (4.2-5.4); White Blood Count 4.32 K/uL (4.8-10.8)
[2018-11-16 16:36] LABS: Appearance Urine Clear (Clear); Bilirubin Urine Negative (Negative); Blood Urine Negative (Negative); Color Urine Yellow; Glucose Urine UA Negative (Negative); Ketones Urine Negative (Negative); Leukocyte Esterase Urine Negative (Negative); Nitrite Urine Negative (Negative); Protein Urine Negative (Negative); Specific Gravity Urine 1.023 (1.000-1.030); Urobilinogen Urine Negative (Negative); pH Urine 5.5 (4.5-7.5)
[2018-11-16 16:49] LABS: Partial Thromboplastin Time 26.2 Seconds (21.0-31.0); Prothrombin Time 10.5 Seconds (9.0-12.0)
[2018-11-16 16:50] LABS: Albumin Level 3.3 gm/dl (3.4-5.0); Calcium 8.7 mg/dl (8.5-10.1); Creatinine Clr Calc Pharmacy 48.1 ml/min; Est GFR (African American) 74.5; Est GFR (Non-African American) 64.3; Potassium 4.2 mmol/L (3.5-5.1)
--- NOTE | 2018-11-16 16:52 | History & Physical Report ---
Date of Service November 16, 2018 Assessment & Plan (1) Osteoarthritis of left knee: DIAGNOSES: Left knee osteoarthritis. PROCEDURE: Left total knee arthroplasty. PLAN: The patient is scheduled to undergo this procedure with Dr. Nathan Reid at the [facility] as an inpatient on 12/13/2018. Risks and complications of the procedure such as infection, bleeding, pain, scarring, nerve and blood vessel damage, weakness, wound problems, stiffness, incomplete relief of symptoms, hardware failure, hardware loosening, wear, fracture, tendon or ligament injury, blood clots, embolism, heart attack, stroke and were explained to the patient at her visit today by Dr. Jung. Informed consent to perform the procedure was obtained. We are awaiting medical clearance from the patient's primary care provider, Dr. Aleksandra Saleh whom the patient saw yesterday. We will also need to obtain a preoperative CBC with differential, complete metabolic panel, PT, INR, blood type and screen, urinalysis, urine culture, EKG, hemoglobin A1c and a nasal culture for MRSA. The patient is scheduled to meet with anesthesia for clearance at the hospital this afternoon and will receive the necessary testing at that time. I went over the entire packet in folder regarding knee replacement surgery with the patient. I advised her that she will need to bring her walker with her on the day of surgery. She already understands that she needs to use antibiotics prior to dental cleanings or procedures from her previous hip arthroplasty. I advised that she will meet with case management to discuss going home with home health nursing service. The patient was given information about lectures at [facility] in regards to joint replacement surgery. She states she will most likely not come to either session because she [place] 2 [address] [place] the hospital. The patient was given paperwork for handicap darshan to obtain for 6 months postoperatively. She will be scheduled for a 2-week postoperative followup with myself on December 26 at 11:15. I advised her that I will provide her with an order for outpatient physical therapy with rehab protocol. She states she will most likely do her therapy at [facility] in [place], [place]. The patient verbalized understanding of all information provided during today's visit, thanked us for the care she has received, and states if she has questions or concerns that should arise prior to the pr ocedure, she will contact the clinic. I also instructed her that I will provide her with medications for pain control and DVT prophylaxis upon discharge from the hospital the day after surgery. I advised her that we will most likely have her on Eliquis for either 2-3 weeks and then have her transition back to baby aspirin twice daily for a total of 1 month along with use of her DARREN stockings. History of Present Illness Chief Complaint: CHIEF COMPLAINT: Left knee pain. Primary Care Provider: Aleksandra Saleh HISTORY OF PRESENT ILLNESS: This is an 82-year-old female who presents to clinic today for preoperative history and physical. The patient had a longstanding history of bilateral knee pain that is worse on the left than the right. The patient states that at times her knee seems to give out on her, prevents her from doing yard work around her house. She is currently using a rolling walker for balance assistance. The patient has received injections in the knees in the past without any significant relief. She has also tried no nsteroidal agents and feels that they have not provided her any significant pain relief. PAST MEDICAL HISTORY: Heart murmur, asthma, COPD, gastroesophageal reflux, vertigo and heart disease. PAST SURGICAL HISTORY: Tonsillectomy/adenoidectomy, hysterectomy, cholecystectomy, ovarian cyst excision, bladder tacking, ankle stabilization surgery, esophageal stretching, right rotator cuff repair, right total hip arthroplasty, bilateral cataract excision, endoscopy, colonoscopy, cardiac catheterization. FAMILY HISTORY: Noncontributory. ALLERGIES: THE PATIENT HAS ALLERGIES TO MORPHINE AND LATEX. CURRENT MEDICATIONS: Advair Diskus 100 mcg/50 mcg 1 puff twice daily, aspirin 81 mg oral delayed release tablet 1 tab daily, carvedilol 3.125 mg oral tablet daily, Cefadroxil 500 mg oral capsule 1 cap every 12 hours, CoQ10, 600 mg daily, diclofenac 1% topical gel 1 application 4 times daily as needed, esomeprazole 40 mg oral delayed release capsule 1 cap daily, meclizine 12.5 mg oral tablet 1 tab 3 times a day as needed for dizziness, montelukast 10 mg oral tablet daily, multivitamin unknown dosage daily, omega-3 1000 mg oral capsule daily, Spiriva 18 mcg inhaled capsule 1 inhaled daily, Xopenex HFA 45 mcg/INH inhalation aerosol 1 puff every 4 hours as needed for wheezing. SOCIAL HISTORY: The patient denies a history of smoking, alcohol or illicit drug use. Allergies Allergy/AdvReac Type Severity Reaction Status Date / Time chlorhexidine Allergy Severe severe Verified 11/16/18 10:42 hives with chloraprep* adhesive tape Allergy Unknown rash Verified 11/16/18 10:42 morphine AdvReac Severe N/V Verified 11/09/18 09:47 codeine AdvReac Unknown constipatio Verified 11/09/18 09:41 n oxycodone AdvReac Unknown Confusion Verified 11/09/18 09:41 EKG PADS Allergy Unknown mild Uncoded 11/16/18 10:42 redness with extended length of exposure Home Medications Home Medications Medication Instructions Recorded Confirmed Type Advair HFA 2 puff INHALATION BID 03/06/18 11/09/18 History Marble 3-6-9 1 tab PO QAM 03/06/18 11/09/18 History Spiriva with HandiHaler 2 puff INHALATION QAM 03/06/18 11/09/18 History Wobenzyme 3 tab PO QAM 03/06/18 11/09/18 History albuterol sulfate 0.63 mg INHALATION UD PRN 03/06/18 11/09/18 History carvedilol 3.125 mg PO BID 03/06/18 11/09/18 History cetirizine 5 mg PO QAM 03/06/18 11/09/18 History coenzyme Q10 [CoQ-10] 600 mg PO QAM 03/06/18 11/09/18 History diclofenac sodium [Voltaren] 2 g TOPICAL QID PRN 03/06/18 11/09/18 History elderberry fruit and flower 1 cap PO QAM 03/06/18 11/09/18 History esomeprazole magnesium [Nexium] 40 mg PO QAM 03/06/18 11/09/18 History [id number] 1 tab PO QAM 03/06/18 11/09/18 History [Vchjob-Tdcdi-FEJ (with antiox)] levalbuterol tartrate [Xopenex HFA] 1 inh INHALATION Q6H PRN 03/06/18 11/09/18 History meclizine 12.5 mg PO TID PRN 03/06/18 11/09/18 History montelukast [Singulair] 10 mg PO PM 03/06/18 11/09/18 History multivitamin 1 tab PO QAM 03/06/18 11/09/18 History polyethylene glycol 3350 [Miralax] 1 tbsp PO QAM 03/06/18 11/09/18 History Myrbetriq 25 mg PO UD PRN 03/13/18 11/09/18 History Hempworks 1 dose BID 11/09/18 11/09/18 History acetaminophen [Pain Reliever] 1,000 mg PO Q8H PRN 11/09/18 11/09/18 History aspirin [Ecotrin Low Strength] 81 mg PO QAM 11/09/18 11/09/18 History vitamin K2 50 mcg PO DAILY 11/09/18 11/09/18 History Past Med/Surg History Medical History Afib Paroxysmal- on ASA/beta fab (per patient, discussed AC in the past but declined/aware of increased risks) Aortic stenosis Mild aortic valve stenosis (SHERRIE 2.73 cm, mean gradient 11.2 mmHg) Asthma stable Chronic obstructive pulmonary disease stable GERD (gastroesophageal reflux disease) controlled Hx of hiatal hernia Hx of vertigo Nocturia improved Osteoarthritis Urinary, incontinence, stress female improved Surgical History History of ankle surgery left History of bunionectomy of left great toe History of cardiac cath "YEARS AGO"= NO STENTS History of esophageal dilatation History of hysterectomy History of left cataract surgery History of right cataract surgery History of total right hip arthroplasty Hx of bladder repair surgery Hx of colonoscopy Hx of rotator cuff surgery right Family History Grandfather Social History Preferred Language: Moldovan Communication Ability: Effective Car Sweeper Required: No Beliefs That Will Affect Care: None marital status: / Current Living Situation: Alone Feels Safe at Home: Yes Smoking Status: Never smoker Hx Alcohol Use: Yes Alcohol type: beer Hx Substance Use: No Review of Systems All systems reviewed & are unremarkable except as noted in HPI & below Physical Exam Physical Exam: PHYSICAL EXAMINATION: Skin: The patient's skin is normal in appearance. No skin lesions or discharge. Eyes: Pupils are equal and react to light and accommodating. Extraocular muscles are intact. Throat: Posterior pharynx is clear with absence of edema, erythema or exudate. Cardiovascular exam: The patient has a regular rate and rhythm with a grade 4/6 holosystolic murmur heard best over the left upper sternal border. Lungs: Auscultation of lung goodson reveals clear breath sounds throughout, no wheezing, rales or rhonchi. Abdomen is mildly obese, nondistended, nontender with normoactive bowel sounds. Extremities: Left knee, the patient has tenderness to palpation over the medial or lateral joint space. There is visible valgus malalignment. The patient is able to extend 2 degrees and flex to 108 degrees and has marked crepitation with range of motion. There is no varus or valgus laxity with stressing of the knee, negative AP drawer sign. The patient's patella is nonmobile due to arthritic change within the patellofemoral joint. Her calf is soft, supple, nontender to palpation. She is neurovascularly intact in left lower extremity. Neurological exam: Cranial nerves 2 through 12 are intact. No motor or sensory deficit. Psychological/General exam: The patient is alert and oriented x3 with proper grooming and hygiene. Results & Data Laboratory Results 11/16/18 11/16/18 11/16/18 Range/Units 14:42 14:42 14:42 WBC (4.8-10.8) K/uL RBC (4.2-5.4) M/uL Hgb (12.0-16.0) g/dL Hct (37-47) % MCV (80-100) fL MCH (25-34) pg MCHC (32-36) g/dL RDW Std Deviation (36.4-46.3) fL RDW Coeff of Kb (11.5-14.5) % Plt Count (130-400) K/uL MPV (7.4-10.4) fL Immature Gran % (Auto) % Neut % (Auto) % Lymph % (Auto) % [place] % (Auto) % Eos % (Auto) % Baso % (Auto) % Immature Gran # (Auto) (0.00-0.02) K/uL Neut # (Auto) (1.4-6.5) K/uL Lymph # (Auto) (1.2-3.4) K/uL [place] # (Auto) (0.11-0.59) K/uL Eos # (Auto) (0-0.5) K/uL Baso # (Auto) (0-0.2) K/uL PT (9.0-12.0) Seconds INR (0.9-1.1) APTT (21.0-31.0) Seconds PTT Ratio Sodium Potassium Chloride Carbon Dioxide Anion Gap BUN Creatinine Est Cr Clr Drug Dosing Est GFR ( Amer) Est GFR (Non-Af Amer) BUN/Creatinine Ratio Glucose Estimat Average Glucose Pending Hemoglobin A1c Pending Calcium Total Bilirubin AST ALT Alkaline Phosphatase Total Protein Albumin Globulin Albumin/Globulin Ratio Urine Color Yellow Urine Appearance Clear (Clear) Urine pH 5.5 (4.5-7.5) Ur Specific [place] 1.023 (1.000-1.030) Urine Protein Negative (Negative) Urine Glucose (UA) Negative (Negative) Urine Ketones Negative (Negative) Urine Blood Negative (Negative) Urine Nitrite Negative (Negative) Urine Bilirubin Negative (Negative) Urine Urobilinogen Negative (Negative) Ur Leukocyte Esterase Negative (Negative) Nasal Screen MRSA (PCR) Pending Blood Type Antibody Screen 11/16/18 11/16/18 11/16/18 Range/Units 14:42 14:42 14:42 WBC (4.8-10.8) K/uL RBC (4.2-5.4) M/uL Hgb (12.0-16.0) g/dL Hct (37-47) % MCV (80-100) fL MCH (25-34) pg MCHC (32-36) g/dL RDW Std Deviation (36.4-46.3) fL RDW Coeff of Kb (11.5-14.5) % Plt Count (130-400) K/uL MPV (7.4-10.4) fL Immature Gran % (Auto) % Neut % (Auto) % Lymph % (Auto) % [place] % (Auto) % Eos % (Auto) % Baso % (Auto) % Immature Gran # (Auto) (0.00-0.02) K/uL Neut # (Auto) (1.4-6.5) K/uL Lymph # (Auto) (1.2-3.4) K/uL Hur[place] # (Auto) (0.11-0.59) K/uL Eos # (Auto) (0-0.5) K/uL Baso # (Auto) (0-0.2) K/uL PT 10.5 (9.0-12.0) Seconds INR 1.0 (0.9-1.1) APTT 26.2 (21.0-31.0) Seconds PTT Ratio 1.0 Sodium Pending Potassium Pending Chloride Pending Carbon Dioxide Pending Anion Gap Pending BUN Pending Creatinine Pending Est Cr Clr Drug Dosing Pending Est GFR ( Amer) Pending Est GFR (Non-Af Amer) Pending BUN/Creatinine Ratio Pending Glucose Pending Estimat Average Glucose Hemoglobin A1c Calcium Pending Total Bilirubin Pending AST Pending ALT Pending Alkaline Phosphatase Pending Total Protein Pending Albumin Pending Globulin Pending Albumin/Globulin Ratio Pending Urine Color Urine Appearance (Clear) Urine pH (4.5-7.5) Ur Specific [place] (1.000-1.030) Urine Protein (Negative) Urine Glucose (UA) (Negative) Urine Ketones (Negative) Urine Blood (Negative) Urine Nitrite (Negative) Urine Bilirubin (Negative) Urine Urobilinogen (Negative) Ur Leukocyte Esterase (Negative) Nasal Screen MRSA (PCR) Blood Type Pending Antibody Screen Pending 11/16/18 Range/Units 14:42 WBC 4.32 L (4.8-10.8) K/uL RBC 4.16 L (4.2-5.4) M/uL Hgb 12.4 (12.0-16.0) g/dL Hct 37.8 (37-47) % MCV 90.9 (80-100) fL MCH 29.8 (25-34) pg MCHC 32.8 (32-36) g/dL RDW Std Deviation 50.2 H (36.4-46.3) fL RDW Coeff of Kb 15.0 H (11.5-14.5) % Plt Count 161 (130-400) K/uL MPV 9.9 (7.4-10.4) fL Immature Gran % (Auto) 0.0 % Neut % (Auto) 57.6 % Lymph % (Auto) 27.8 % Hur[place] % (Auto) 7.6 % Eos % (Auto) 6.3 % Baso % (Auto) 0.7 % Immature Gran # (Auto) 0.00 (0.00-0.02) K/uL Neut # (Auto) 2.49 (1.4-6.5) K/uL Lymph # (Auto) 1.20 (1.2-3.4) K/uL Huron # (Auto) 0.33 (0.11-0.59) K/uL Eos # (Auto) 0.27 (0-0.5) K/uL Baso # (Auto) 0.03 (0-0.2) K/uL PT (9.0-12.0) Seconds INR (0.9-1.1) APTT (21.0-31.0) Seconds PTT Ratio Sodium Potassium Chloride Carbon Dioxide Anion Gap BUN Creatinine Est Cr Clr Drug Dosing Est GFR ( Amer) Est GFR (Non-Af Amer) BUN/Creatinine Ratio Glucose Estimat Average Glucose Hemoglobin A1c Calcium Total Bilirubin AST ALT Alkaline Phosphatase Total Protein Albumin Globulin Albumin/Globulin Ratio Urine Color Urine Appearance (Clear) Urine pH (4.5-7.5) Ur Specific [place] (1.000-1.030) Urine Protein (Negative) Urine Glucose (UA) (Negative) Urine Ketones (Negative) Urine Blood (Negative) Urine Nitrite (Negative) Urine Bilirubin (Negative) Urine Urobilinogen (Negative) Ur Leukocyte Esterase (Negative) Nasal Screen MRSA (PCR) Blood Type Antibody Screen
[2018-11-16 16:53] LABS: Albumin Globulin Ratio 1.1 (0.9-2); Bilirubin,Total 0.4 mg/dl (0.2-1); Globulin 3.1 gm/dl (2.5-4.0); Total Protein 6.4 gm/dl (6.4-8.2)
[2018-11-17 06:43] LABS: Estimated Average Glucose 123 mg/dl; Hemoglobin A1C 5.9 % (4.5-5.6)
[~2018-12-13 08:58] MED LIST changes: +BUPIVACAINE 0.5 % 5 MG/1 ML PF 10ML VIAL ONE; -CEFAZOLIN 1000MG 1,000 MG/7.5 ML SYR IV SCH; +CEFAZOLIN 2000MG 2,000 MG/15 ML SYR IV SCH; -GABAPENTIN 300 MG PO SCH; +LR 500ML BOLUS, THEN 15ML/HR IV SCH; +LR 60ML/HR IV SCH; +ROPIVACAINE 0.5% 5 MG/ML 30 ML VIAL ONE; +ROPIVACAINE 0.5% HCL/PF 150 MG, BUPIVACAINE 0.5% MPF 30 ML, EPINEPHrine 0.15 MG, Ketoro... INFIL SCH; -ROPIVACAINE 0.5% HCL/PF 150 MG, BUPIVACAINE 0.5% MPF 30 ML, EPINEPHrine 30MG/30ML (OR U... INFIL SCH; +SCOPOLAMINE 1.5 MG TDSY TD SCH; +TRAMADOL HCL 50 MG TABLET PO SCH; +TRANEXAMIC ACID 1,000 MG x 1 **For Topical Use TOP SCH
[2018-12-13] MEDS ORDERED: MIDAZOLAM HCL 1 MG/ML 2ML VIAL ONE ×2 (10:29→12:26)
[2018-12-13] MEDS ORDERED: LIDOCAINE HCL 2% 2 ML VIAL/AMP(20MG/ML) INFIL ONE (10:29)
[2018-12-13] MEDS ORDERED: PROPOFOL IV EMULSION 10 MG/ML 20 ML VIAL IV ONE ×2 (10:29→13:22)
[2018-12-13] MEDS ORDERED: ORTHO JOINT ANESTHETIC ONE (11:18)
[2018-12-13] MEDS ORDERED: HYDROmorphone INJ 1 MG/ML SYRINGE IV PRN (11:22)
[2018-12-13] MEDS ORDERED: ATROPINE SULFATE 0.1 MG/ML 10ML SYR IV PRN (11:22)
[2018-12-13] MEDS ORDERED: PHENYLEPHRINE 100MCG/ML 5ML SYR IV PRN (11:22)
[2018-12-13] MEDS ORDERED: ePHEDrine sulfate 50 MG/ML AMP IV PRN (11:22)
[2018-12-13] MEDS ORDERED: KETOROLAC 30 MG/ML VIAL IV PRN (11:22)
[2018-12-13] MEDS ORDERED: ONDANSETRON INJ 2 MG/ML 2 ML VIAL IV PRN ×2 (11:22→14:06)
--- NOTE | 2018-12-13 11:30 | History & Physical Bridge Note ---
Date of Service December 13, 2018 History & Physical Bridge Note I have examined the patient, reviewed the History & Physical and in the interval since the performance of the History & Physical I have noted the following changes of clinical significance: no changes noted
[2018-12-13] MEDS ORDERED: fentaNYL citrate 100 MCG/2 ML VIAL ONE (12:32)
--- NOTE | 2018-12-13 13:58 | Post Operative Brief Note ---
Immediate Post Op Note v1 Date of Surgery December 13, 2018 Pre & Post Diagnosis Operation Date: 12/13/18 11:55 Pre-Op Diagnosis: Left Knee Osteoarthritis Post-Op Diagnosis: Left Knee Osteoarthritis Procedure Operation Date: 12/13/18 11:55 Actual Procedures p Left Total Knee Arthroplasty, Depuy(Left) - Nathan Jung MD Surgeon Nathan Jung MD [employer] Manager BRYAN Gomez PA-C Estimated Blood Loss 50 Findings Consistent with Post-Op Diagnosis Fluids 1400 cc Anesthesia Type Spinal MAC Complications none Disposition Accompanied Patient To Recovery: No Disposition: Recovery Room
[2018-12-13] MEDS ORDERED: NALOXONE HCL 0.4 MG/1 ML VIAL/CARP IV PRN (14:06)
[2018-12-13] MEDS ORDERED: BISACODYL 10 MG SUPP PR PRN (14:06)
[2018-12-13] MEDS ORDERED: MAGNESIUM HYDROXIDE SUSP 30 ML UDC PO PRN (14:06)
[2018-12-13] MEDS ORDERED: ALUMINUM/MAGNESIUM SUSP 30 ML UDC PO PRN (14:06)
[2018-12-13] MEDS ORDERED: TRAMADOL HCL 50 MG TABLET PO PRN (14:06)
[2018-12-13] MEDS ORDERED: METOCLOPRAMIDE HCL INJ 5 MG/ML 2 ML VIAL IV PRN (14:06)
[2018-12-13] MEDS ORDERED: HYDROCODONE/ACETAMOPHEN 5/325MG TAB PO PRN (14:06)
[2018-12-13] MEDS ORDERED: DiphenhydrAMINE HCL 50 MG/ML VIAL IV PRN (14:06)
--- NOTE | 2018-12-13 14:06 | Operative Report ---
DATE OF OPERATION: 12/13/2018 PREOPERATIVE DIAGNOSIS: Left knee osteoarthritis. POSTOPERATIVE DIAGNOSIS: Left knee osteoarthritis. OPERATIONS PERFORMED: Left total knee arthroplasty. SURGEON: Nathan Jung MD DIET COUNSELOR: Jimmy Gomez PA-C ESTIMATED BLOOD LOSS: 50 mL. INTRAVENOUS FLUIDS: 1600 mL crystalloid. SPECIMENS: Distal femur and proximal tibial bone cuts. COMPLICATIONS: None. IMPLANTS: 1. DePuy Sigma size 3 left posterior stabilized cemented femur. 2. DePuy size 4 MBT keel rotating platform cemented tibial tray. 3. DePuy 10 mm thickness polyethylene insert for a size 3 femur. 4. DePuy 38 mm oval dome patella. INDICATIONS: Ms. Rahman is an 83-year-old female who has had left knee arthritis that has been refractory to conservative management. I had a long discussion with her about the risks and benefits of surgery, alternatives to surgery and expected outcomes. After reviewing all these, she elected to proceed with surgery. All questions were answered. Informed consent was signed. DESCRIPTION OF THE OPERATION: The patient was identified in the preoperative holding area where her surgical site was marked. She was given a spinal by anesthesia and brought back to main operating room. She was placed on the operating room table and IV sedation was administered. All bony prominences were padded. Perioperative antibiotics were administered. She was prepped and draped in normal sterile fashion. Prior to incision, a multidisciplinary timeout was called. All in the room were in agreement. We began by exsanguinating the limb with an Esmarch bandage. Tourniquet was inflated to 250 mmHg. Total tourniquet time for the case was 51 minutes. A 12 cm midline incision was made. Flaps were raised above the level of fascia. Arthrotomy was made curving along the medial aspect of the patella and extending up into the quadriceps tendon. The medial release was performed using a Bovie electrocautery. Synovitis in the suprapatellar pouch was removed with electrocautery. The patella was then everted and held with 2 towel clips. The thickness was measured at 23 mm. We then made our saw cut which measured at 14 mm. We then drilled the 3 holes and placed the trial button which came back at a thickness of 23 mm, which we were very happy with. Next, the patellar button was removed and the knee was flexed up with patella everted. Retractors were placed to protect the collateral ligaments. Notch osteophytes were removed. The ACL and PCL were removed with electrocautery. The intramedullary drill guide was used followed by the distal femoral cutting jig that was set at 5 degrees valgus for a left knee. We resected 11 mm off the distal femur. We then placed our tibial cutting jig, which set was to resect 10 mm off the less involved compartment. This was set to create a perpendicular cut. The jig was then pinned into position. A tibial cut was made. The medial meniscus was removed. The extension block was then placed and she had symmetric rectangular extension block for a 10 mm thickness implant. Next, the knee was flexed back up and the sizing guide was placed on the femur. She sized to a size 3. The 3-degree external rotation jig was pinned into position. The 4-in-1 cutting guide was then placed and secured. Our anterior, posterior and chamfer cuts were then made. The cutting jig was removed. We checked our flexion block which had nice stability to varus valgus stress at 90 degrees. Next, the box cut was made in the distal femur slightly lateralizing to improve her patellar tracking. The proximal tibia was then exposed. She sized to a size 4. The size 4 tibial tray was pinned to the tibia. We then placed the intramedullary drill followed by the keel punch. We then trialled her with a 10 mm thickness polyethylene on the tibia and with the size 3 femur. She had a full range of motion with full extension and flexion up to 145 degrees. I was very happy with the stability exam. At this point, the trial components were removed. We injected the posterior capsule as well as the periosteum with our periarticular injection cocktail. We then irrigated the cut bony surfaces and dried them. The cement was mixed on the back table. Once the cement was ready, the femur was cemented on first. The excess cement was removed. We then protected the femoral component with a lap sponge and subluxated the tibia forward. We then cemented our tibial component and placed a 10 mm trial spacer and brought the knee out into full extension after removing all the cement. Our patella was then cemented and clamped. The wound was irrigated with a dilute Betadine solution while we waited for the cement to cure. Once the cement was cured, the Betadine was irrigated out and the tourniquet was let down. Meticulous hemostasis was ensured. We then removed the trial polyethylene liner. Again, we checked for any cement and there was no further cement that needed to be removed. The real polyethylene liner was placed. The knee was brought into full extension and the tranexamic acid was placed topically and the knee. This was allowed to sit for 3 minutes. After 3 minutes, the arthrotomy was closed using #1 Ethibond suture running in the patellar tendon and quadriceps tendon. The retinacular layer around the patella was closed with interrupted [id number] 0 Vicryl sutures. The deep dermal layer proximally was closed with 0 Vicryl. The skin was run with a 2-0 Vicryl and a ZipLine was placed on the skin. At this point, the Silverlon dressing was placed and she was placed in a compressive wrap. Her sedation was lifted and she was transferred to recovery room in stable condition. POSTOPERATIVE COURSE: The patient will be weightbearing as tolerated. She will be admitted overnight for pain control and monitoring and into work with physical therapy. She will be on aspirin for DVT prophylaxis. I attest to the content of the Intraoperative Record and any orders documented therein. Any exception s are noted below.
--- NOTE | 2018-12-13 14:06 | Operative Report ---
Post Operative Report Pre & Post Diagnosis Operation Date: 12/13/18 11:55 Pre-Op Diagnosis: Left Knee Osteoarthritis Post-Op Diagnosis: Left Knee Osteoarthritis Procedure Operation Date: 12/13/18 11:55 Actual Procedures p Left Total Knee Arthroplasty, Depuy(Left) - Nathan Jung MD Surgeon Nathan Jung MD Director Of Rehabilitation And Wellness BRYAN Gomez PA-C Estimated Blood Loss 50 Findings Consistent with Post-Op Diagnosis Specimens none Complications none Disposition Accompanied Patient To Recovery: Yes Disposition: Recovery Room Description of Procedure I was present during the entire case assisting with wound closure and dressing application. Please see Dr. Jung procedure note for specifics of the case I attest to the content of the Intraoperative Record and any orders documented therein. Any exceptions are noted below.
[2018-12-13] MEDS ORDERED: LEVALBUTEROL TARTRATE 15 GM HFA.AER.AD INH PRN (14:10)
[2018-12-13] MEDS ORDERED: MECLIZINE 12.5 MG TAB PO PRN (14:10)
[2018-12-13] MEDS ORDERED: LEVALBUTEROL HCL 0.63 MG/3 ML NEB INH PRN (14:10)
[2018-12-13] MEDS ORDERED: MIRABEGRON ER 25 MG TAB PO PRN (14:10)
[2018-12-13] MEDS ORDERED: ACETAMINOPHEN 500 MG TAB PO PRN (14:10)
[2018-12-13] MEDS ORDERED: SODIUM CHLORIDE 0.9% 1000ML 1,000 ML IV SCH (14:15)
--- NOTE | 2018-12-13 14:19 | Anesthesiology Progress Note ---
Date of Service December 13, 2018 Anesthesia Post Procedure Vital Signs Vital Signs: Temp Pulse Resp BP Pulse Ox 12/13/18 09:38 36.8 C 54 L 18 146/77 H 96 Transfer of Care Handoff Completed per policy Notes Mental Status: alert / awake / arousable Patient Amnestic to Procedure: Yes Nausea / Vomiting: adequately controlled Pain: adequately controlled Airway Patency, RR, SpO2: stable & adequate BP & HR: stable & adequate Hydration State: stable & adequate Neuraxial Anesthesia: was administered and sensory block is resolving Anesthetic Complications: no major complications apparent
--- NOTE | 2018-12-13 14:43 | XRay Report ---
XR knee LT 2V routine CLINICAL HISTORY: Postoperative evaluation. COMPARISON: Left knee radiographs October 22, 2018 and November 22, 2018. FINDINGS: Alignment of the total left knee arthroplasty is anatomic. No fracture is identified. Ther e are no unexpected radiopaque foreign bodies. IMPRESSION: Expected findings following total left knee arthroplasty. Electronically signed by: Ronak Constantino M.D. 12/13/2018 2:41 PM
[2018-12-13] MEDS: [UNRECOGNIZED DRUG - OTHER] SCH ×6 (15:18→20:58)
[2018-12-13] MEDS: CHECK SCOPOLAMINE PATCH PLACEMENT SCH (15:20)
[2018-12-13] MEDS: KETOROLAC 30 MG/ML VIAL IV SCH ×2 (17:03→21:51)
[2018-12-13] MEDS: CEFAZOLIN 2000MG 2,000 MG/15 ML SYR IV SCH (19:30)
[2018-12-13] MEDS: CARVEDILOL 3.125 MG TAB PO SCH (20:12)
[2018-12-13] MEDS: ASPIRIN 81 MG ECTAB PO SCH (20:13)
[2018-12-13] MEDS: DOCUSATE SODIUM 100 MG CAP PO SCH (20:13)
[2018-12-13] MEDS ORDERED: SENNA 8.6 MG TAB PO SCH (21:00)
[2018-12-13] MEDS ORDERED: MONTELUKAST SODIUM 10 MG TABLET PO SCH (21:00)
[2018-12-13] MEDS ORDERED: ASPIRIN 81 MG ECTAB PO SCH (21:00)
[2018-12-13] MEDS: ACETAMINOPHEN 500 MG TAB PO SCH (21:50)
[2018-12-14] MEDS: CHECK SCOPOLAMINE PATCH PLACEMENT SCH (00:48)
[2018-12-14] MEDS: CEFAZOLIN 2000MG 2,000 MG/15 ML SYR IV SCH (04:44)
[2018-12-14] MEDS: ACETAMINOPHEN 500 MG TAB PO SCH ×2 (04:44→13:54)
[2018-12-14] MEDS: KETOROLAC 30 MG/ML VIAL IV SCH ×2 (04:44→09:39)
[2018-12-14 06:01] LABS: Hematocrit (blood only) 31.6 % (37-47); Hemoglobin 10.1 g/dL (12.0-16.0); Mean Corpuscular Hemoglobin 29.4 pg (25-34); Mean Corpuscular Volume 91.9 fL (80-100); Mean Platelet Volume 9.1 fL (7.4-10.4); Platelet Count 145 K/uL (130-400); RDW Coefficient of Variation 14.7 % (11.5-14.5); RDW Standard Deviation 49.5 fL (36.4-46.3); Red Blood Count 3.44 M/uL (4.2-5.4); White Blood Count 7.57 K/uL (4.8-10.8)
[2018-12-14 06:34] LABS: BUN Creatinine Ratio 22.8 (10-20); Calcium 8.3 mg/dl (8.5-10.1); Creatinine Clr Calc Pharmacy 51.5 ml/min; Est GFR (African American) 83.5; Potassium 4.1 mmol/L (3.5-5.1)
--- NOTE | 2018-12-14 07:34 | Orthopedic Progress Note ---
Date of Service December 14, 2018 Assessment & Plan (1) S/P knee replacement: PT/OT this AM Discharge to rehab after PT/OT Follow-up 2 weeks Subjective Had some dizziness getting up quickly from bed yesterday which resolved. No cp/sob. No f/c. Pain well controlled. Physical Exam Physical Exam: NAD Dressing c/d/i. Distally NVI. Results & Data Vital Signs (Past 12 Hours) Vital Signs Temp Pulse Resp BP Pulse Ox 12/14/18 03:14 36.6 C 63 16 108/64 92 12/13/18 22:58 36.9 C 69 16 102/64 91 12/13/18 20:11 60 129/68 12/13/18 19:54 36.6 C 61 16 125/73 91
[2018-12-14] MEDS: ASPIRIN 81 MG ECTAB PO SCH (07:56)
[2018-12-14] MEDS: CARVEDILOL 3.125 MG TAB PO SCH (07:56)
[2018-12-14] MEDS: DOCUSATE SODIUM 100 MG CAP PO SCH (07:56)
[2018-12-14] MEDS ORDERED: dexAMETHasone 4 MG TAB PO SCH (08:00)
[2018-12-14] MEDS ORDERED: [UNRECOGNIZED DRUG - REMARK] PO SCH (09:00)
[2018-12-14] MEDS ORDERED: ELDERBERRY FRUIT AND FLOWER PO SCH (09:00)
[2018-12-14] MEDS ORDERED: CETIRIZINE HCL 10 MG TABLET PO SCH (09:00)
[2018-12-14] MEDS ORDERED: MULTIVITAMIN TAB PO SCH ×2 (09:00)
[2018-12-14] MEDS ORDERED: TIOTROPIUM BROMIDE 5 PUFF/90 MCG INH INH SCH (09:00)
[2018-12-14] MEDS ORDERED: POLYETHYLENE (MIRALAX) 17 GM PACK PO SCH (09:00)
[2018-12-14] MEDS ORDERED: [UNRECOGNIZED DRUG - OTHER] PO SCH (09:00)
[2018-12-14] MEDS ORDERED: VITAMIN K2 PO SCH (09:00)
[2018-12-14] MEDS ORDERED: PANTOprazole 40 MG TAB PO SCH (09:00)
[2018-12-14] MEDS ORDERED: COENZYME Q10 600 MG PO SCH (09:00)
[2018-12-14] MEDS ORDERED: CeleBREX 200 MG CAP PO SCH (14:00)
--- NOTE | 2018-12-17 12:30 | Discharge Summary ---
Date of Service December 17, 2018 Admission HPI Per Admitting Provider HISTORY OF PRESENT ILLNESS: This is an 82-year-old female who presents to clinic today for preoperative history and physical. The patient had a longstanding history of bilateral knee pain that is worse on the left than the right. The patient states that at times her knee seems to give out on her, prevents her from doing yard work around her house. She is currently using a rolling walker for balance assistance. The patient has received injections in the knees in the past without any significant relief. She has also tried nonsteroidal agents and feels that they have not provided her any significant pain relief. PAST MEDICAL HISTORY: Heart murmur, asthma, COPD, gastroesophageal reflux, vertigo and heart disease. PAST SURGICAL HISTORY: Tonsillectomy/adenoidectomy, hysterectomy, cholecystectomy, ovarian cyst excision, bladder tacking, ankle stabilization surgery, esophageal stretching, right rotator cuff repair, right total hip arthroplasty, bilateral cataract excision, endoscopy, colonoscopy, cardiac catheterization. FAMILY HISTORY: Noncontributory. ALLERGIES: THE PATIENT HAS ALLERGIES TO MORPHINE AND LATEX. CURRENT MEDICATIONS: Advair Diskus 100 mcg/50 mcg 1 puff twice daily, aspirin 81 mg oral delayed release tablet 1 tab daily, carvedilol 3.125 mg oral tablet daily, Cefadroxil 500 mg oral capsule 1 cap every 12 hours, CoQ10, 600 mg daily, diclofenac 1% topical gel 1 application 4 times daily as needed, esomeprazole 40 mg oral delayed release capsule 1 cap daily, meclizine 12.5 mg oral tablet 1 tab 3 times a day as needed for dizziness, montelukast 10 mg oral tablet daily, multivitamin unknown dosage daily, omega-3 1000 mg oral capsule daily, Spiriva 18 mcg inhaled capsule 1 inhaled daily, Xopenex HFA 45 mcg/INH inhalation aerosol 1 puff every 4 hours as needed for wheezing. SOCIAL HISTORY: The patient denies a history of smoking, alcohol or illicit drug use. Admission Exam Per Admitting Provider PHYSICAL EXAMINATION: Skin: The patient's skin is normal in appearance. No skin lesions or discharge. Eyes: Pupils are equal and react to light and accommodating. Extraocular muscles are intact. Throat: Posterior pharynx is clear with absence of edema, erythema or exudate. Cardiovascular exam: The patient has a regular rate and rhythm with a grade 4/6 holosystolic murmur heard best over the left upper sternal border. Lungs: Auscultation of lung goodson reveals clear breath sounds throughout, no wheezing, rales or rhonchi. Abdomen is mildly obese, nondistended, nontender with normoactive bowel sounds. Extremities: Left knee, the patient has tenderness to palpation over the medial or lateral joint space. There is visible valgus malalignment. The patient is a ble to extend 2 degrees and flex to 108 degrees and has marked crepitation with range of motion. There is no varus or valgus laxity with stressing of the knee, negative AP drawer sign. The patient's patella is nonmobile due to arthritic change within the patellofemoral joint. Her calf is soft, supple, nontender to palpation. She is neurovascularly intact in left lower extremity. Neurological exam: Cranial nerves 2 through 12 are intact. No motor or sensory deficit. Psychological/General exam: The patient is alert and oriented x3 with proper grooming and hygiene. Principal Diagnosis Left knee osteoarthritis Discharge Exam NAD Dressing c/d/i. Distally NVI. Discharge Data Allergies Allergy/AdvReac Type Severity Reaction Status Date / Time chlorhexidine Allergy Severe severe Verified 12/13/18 10:01 hives with chloraprep* adhesive tape Allergy Unknown rash Verified 12/13/18 10:01 morphine AdvReac Severe N/V Verified 12/13/18 10:01 codeine AdvReac Unknown constipatio Verified 12/13/18 10:01 n oxycodone AdvReac Unknown Confusion Verified 12/13/18 10:01 Consultations 12/13/18 14:06 Consult Case Management - Discharge Planning Routine Procedures Performed Operation Date: 12/13/18 11:55 Actual Procedures p Left Total Knee Arthroplasty, Depuy(Left) - Nathan Jung MD Ordered Studies 12/13/18 05:00 US - OR guided needle placemen Routine Hospital Course (1) S/P knee replacement: Patient did well overnight. Decided to be discharged home with home health services instead of in-patient rehab. PT/OT this AM Discharge to rehab after PT/OT Follow-up 2 weeks Total Time Total Time Spent Total Time Spent (In Minutes): 20 mins Total Time Includes: Examination of the Patient, Discharge Planning and Medication Reconciliation Discharge Plan Discharge Items Patient Disposition: Home - Home Health Services Reason For Visit: Left Knee Osteoarthritis Discharge Diagnosis: Left knee osteoarthritis Activity: As commented below Lifting: None Bathing: Keep incision dry Bathing Comment: May shower tomorrow Sexual Activity: Wait until after follow-up appointment Exercise/Sports: Wait until after follow-up appointment Weightbearing Comment: as tolerate with immobilizer and walker Non-emergency contact: Surgeon Call non-emergency contact if: you have any medication questions, your pain is not controlled, your temperature is above 101.5, your wound has increased redness and your wound has increased drainage Follow-up/Referrals: Aleksandra Saleh M.D. [Primary Care Provider] - Diet: Regular Addtl Attending Provider Instructions: Post-operative Instructions Dear Patient and Family/Friends, Before you are discharged from the hospital, it is important to know what to expect when you get home after surgery. To that end, we have created this sheet of discharge instructions which covers many commonly asked questions. Make sure you go through this sheet in its entirety with your nurse before you are discharged. Please note that we will go over the specifics of your surgery and recovery when you return for your first post-operative visit. Sincerely, Dr. Jung Medications 1. Tramadol 50 mg: take 1-2 tabs by mouth every 4-6 hrs as needed for pain 2. Diclofenac Sodium 75 mg: take 1 tab twice daily for 30 days post operatively 3. Extra Strength Tylenol 500mg: Take 2 tabs every 6 hrs as needed for pain for 30 days post-op 4. Increase your daily 81 mg Aspirin to twice daily for 30 days post-op Pain Expect to be in a fair amount of pain after surgery. Remember, our goal is not to eliminate your pain, but to make it tolerable. It is a good idea to stay ahead of your pain by taking the medications you were prescribed once you get home. Typically, the pain starts improving 3-7 days after surgery. You should start weaning off the narcotic pain medication (oxycodone, hydrocodone, hydromorphone, morphine) as soon as your pain improves. Please call our office if your pain is not adequately controlled. Ice Ice your operative site at least 5 times a day for 15-30 minutes at a time. Make sure you have a thin cloth between the ice or cooling unit and your skin to pre vent del cid bite. This is especially important if you received a nerve block. Continue icing your operative site for the first 5-7 days after surgery, then as needed. Diet/Nausea/Vomiting Start by drinking clear liquids and eating crackers. If you can tolerate this, then you may resume your normal diet. If you feel nauseated or vomit, take Zofran/ondansetron (if prescribed). Please call our office if you have intractable nausea or vomiting, or, if after hours, you may go to the Emergency Room for help. Constipation Constipation is a common side effect of narcotic pain medication. If you have not had a bowel movement within 2 days after surgery, we recommend purchasing an over the counter laxative such as Milk of Magnesia, Dulcolax, or Miralax from a local pharmacy, and taking it as instructed. Call our clinic if any questions. Slings and Braces If you were placed in a sling or brace, it must be worn at all times, including sleep. You may remove your sling or brace for physical therapy, home exercises, and showering. The length of time you will be in your brace and range of motion restrictions depends on what surgery you had; these details will be reviewed at your first post-operative appointment. Nerve block The anesthesia team sometimes places a nerve block to help with post-operative pain control. This results in significant numbness and inability to move the extremity. The nerve block usually wears off in 8-12 hours, but sometimes can last up to 24 hours. Please call our office if you are still unable to move your extremity after 24 hours, unless you received a pain pump to take home. Nerve blocks typically wear off quickly, so start taking pain medication as soon as you start feeling soreness near your surgical site. Weight bearing and Range of Motion. Do not bear any weight through your operative extremity immediately after surgery. If you had upper extremity surgery, do not lift anything with that arm. If you are in a knee brace, keep it locked in place until your follow-up. We will discuss your weight bearing, range of motion, and lifting restrictions in detail at your first post-operative appointment. Continuous Passive Motion (CPM) Machine If you were prescribed a CPM machine, it will start after your first post- operative appointment, at which time we will give you instructions on the range of motion settings and duration of treatment Physical therapy You will be given a prescription for physical therapy or occupational therapy at your first post-operative appointment. Typically, patients start therapy within 1 week of surgery Wound care and showering We will inspect your wound at your first post-operative visit, and may do a dressing change at that time. Most patients will be in a water-proof dressing that is removed 14 days after surgery. It is normal to see some dried blood on the dressing. Do not remove your dressing, paper strips or sutures yourself unless you are given permission. Showering is allowed the day after surgery. Do not scrub or remove any dressings. The wound should not be submerged underwater (i.e. in a bathtub or pool) until 4 weeks after surgery DARREN stockings If you were given white stockings, these are to be worn at all times except to shower (on both legs) for the first 2 weeks after surgery. Driving You may not drive while taking narcotic pain medication or while in a cast, splint, sling or brace. You, the patient, need to make the final determination about when you are safe to drive, however, the earliest you may consider driving after surgery is below: Hand/Wrist/Elbow Surgery: 3 days Shoulder Surgery: 2 weeks Hip,/Knee/Ankle Surgery: 4 weeks Fracture repair: 6 weeks Return to Work Your return to work depends on what surgery was done and what type of work you do. Please bring any paperwork your employer needs completed to your first post-operative visit. Also, bring a description of your job duties, as this helps us to understand what risks you may face at work. Travel Avoid long distance travel (greater than 1 hour) in airplanes and cars for the first 6 weeks after surgery. If you must travel, you need to have a Doppler ultrasound done before you travel to rule out a blood clot in your legs. Follow-up You should have a follow-up appointment already scheduled 1-2 days after surgery. If not, please contact our office to make this appointment before you leave the hospital. When to call the office It is normal to have swelling and bruising in the limb that was operated on. This will improve with time. It is also normal to have fevers for the first 2 days after surgery. Reasons you should call your doctor include: Uncontrolled pain; Nausea, vomiting, or constipation that does not improve with medication; Fevers over 101.5, chills, sweats; Drainage or bleeding from the wound; Foul odor; Spreading areas of redness; Any other concerns Pending Studies at Discharge: No Stand-Alone Forms: [facility] Medications and DC Order Prescriptions: New diclofenac sodium 75 mg tablet,delayed release (DR/EC) 75 mg PO BID PRN (Reason: pain) 30 Days Qty: 60 RF: 1 tramadol 50 mg tablet 50 mg PO Q6H MDD 2 tabs po q 4-6 hrs prn PRN (Reason: pain) Qty: 30 RF: 0 Continued multivitamin Tablet 1 tab PO QAM RF: 0 albuterol sulfate 0.63 mg/3 mL Solution For Nebulization 0.63 mg INHALATION UD PRN (Reason: COPD) RF: 0 cetirizine 10 mg Tablet 5 mg PO QAM RF: 0 meclizine 12.5 mg Tablet 12.5 mg PO TID PRN (Reason: Dizziness) RF: 0 esomeprazole magnesium [Nexium] 40 mg Capsule,Delayed Release(Dr/Ec) 40 mg PO QAM RF: 0 montelukast [Singulair] 10 mg Tablet 10 mg PO PM RF: 0 Spiriva with HandiHaler 18 mcg Capsule, W/Inhalation Device 2 puff Inhalation QAM RF: 0 levalbuterol tartrate [Xopenex HFA] 45 mcg/actuation Hfa Aerosol Inhaler 1 inh INHALATION Q6H PRN (Reason: Wheezing) RF: 0 diclofenac sodium [Voltaren] 1 % Gel 2 g TOPICAL QID PRN (Reason: Pain) RF: 0 [id number]-[id number]-[id number] [Npgjwv-Vknge-YFB (with antiox)] 500-500-66.7 mg Tablet 1 tab PO QAM RF: 0 [place] 3-6-9 1,200 mg Capsule 1 tab PO QAM RF: 0 Wobenzyme tablet 3 tab PO QAM RF: 0 elderberry fruit and flower 1 cap PO QAM RF: 0 carvedilol 3.125 mg Tablet 3.125 mg PO BID RF: 0 polyethylene glycol 3350 [Miralax] 17 gram/dose Powder 1 tbsp PO QAM RF: 0 coenzyme Q10 [CoQ-10] 100 mg Capsule 600 mg PO QAM RF: 0 Advair HFA 230-21 mcg/actuation Hfa Aerosol Inhaler 2 puff INHALATION BID RF: 0 Myrbetriq 25 mg Tablet Extended Release 24 Hr 25 mg PO UD PRN (Reason: BLADDER SYMPTOM) RF: 0 acetaminophen [Pain Reliever] 500 mg tablet 1,000 mg PO Q8H PRN (Reason: Pain) RF: 0 vitamin K2 40 mcg Tablet 50 mcg PO DAILY RF: 0 Hempworks 1 dose BID RF: 0 Changed aspirin [Ecotrin Low Strength] 81 mg tablet,delayed release (DR/EC) 81 mg PO BID Qty: 0 RF: 0 Discharge Orders: Discharge Order (Routine); Ordered 12/13/18 Ordered By: Markus Gomez Admission Data Admit Date/Time: 12/13/18 14:06 Attending Provider: Nathan Jung Admit Provider: Nathan Jung Primary Care Provider: Aleksandra Saleh V. Other Interventions: Discharge Summary Assessment (RN) Last Done: 12/14/18 16:37 DC Date/Time DO NOT enter until pt leaves facility: 12/14/18 17:15
== END 2018-12-14 17:15 | disposition home health service (06) | DRG 470 ==
LOC: ASU 08:58 → 3E 14:06
DX: K21.9 Gastro-esophageal reflux disease without esophagitis; Z91.040 Latex allergy status; Z88.3 Allergy status to other anti-infective agents; Z79.82 Long term (current) use of aspirin; I48.91 Unspecified atrial fibrillation; R01.1 Cardiac murmur, unspecified; R32 Unspecified urinary incontinence; R42 Dizziness and giddiness; J44.9 Chronic obstructive pulmonary disease, unspecified; Z79.899 Other long term (current) drug therapy; Z88.5 Allergy status to narcotic agent; M17.12 Unilateral primary osteoarthritis, left knee; Z96.641 Presence of right artificial hip joint

== ENCOUNTER 2020-11-12 08:28 | Observation (INO) ==
--- NOTE | 2020-10-28 13:17 | PAT Medication Instructions ---
Medication Instructions Date of Service October 28, 2020 Home Medications Medication Instructions Recorded aspirin 81 mg tablet,delayed 81 mg PO BID #0 tab 12/13/18 release (Ecotrin Low Strength) Wobenzyme 3 tab PO QAM albuterol sulfate 0.63 mg/3 mL solution for nebulization 0.63 mg INHALATION UD PRN carvedilol 3.125 mg tablet 3.125 mg PO BID cetirizine 10 mg tablet 10 mg PO QAM coenzyme Q10 100 mg capsule (CoQ-10) 100 mg PO QAM diclofenac sodium 1 % topical gel (Voltaren) 2 g TOPICAL QID PRN elderberry fruit and flower 1 cap PO QAM esomeprazole magnesium 40 mg capsule,delayed release (Nexium) 40 mg PO QAM fish, borage, flaxseed oils-omega 3,6,9 comb no.1 1,200 mg capsule (Sells 3-6-9) 1 tab PO QAM fluticasone propionate 230 mcg-salmeterol 21 mcg/actuation HFA inhaler (Advair HFA) 2 puff INHALATION BID lqivviwzzzj-xqj-huywfsozt-hrb 149-hyalur 500 mg-500 mg-66.7 mg tablet (Wbueczuctwn-Ykwgajkexqe-JJQ (with antiox)) 1 tab PO QAM levalbuterol tartrate 45 mcg/actuation aerosol inhaler (Xopenex HFA) 1 inh INHALATION Q6H PRN meclizine 12.5 mg tablet 12.5 mg PO TID PRN montelukast 10 mg tablet (Singulair) 10 mg PO HS multivitamin 1 tab PO QAM polyethylene glycol 3350 17 gram/dose oral powder (Miralax) 1 tbsp PO QAM tiotropium bromide 18 mcg capsule with inhalation device (Spiriva with HandiHaler) 2 puff INHALATION QAM mirabegron 25 mg tablet,extended release 24 hr (Myrbetriq) 25 mg PO UD PRN Hempworks 1 dose SUBLINGUAL HS acetaminophen 500 mg tablet (Pain Reliever (acetaminophen)) 500 mg PO Q8H PRN aspirin 81 mg tablet,delayed release (Ecotrin Low Strength) 81 mg PO BID guaifenesin 600 mg tablet, extended release 12 hr (Mucinex) 600 mg PO BID ASK your prescriber and surgeon aspirin 81 mg tablet,delayed release (Ecotrin Low Strength) 81 mg PO BID STOP taking 2 weeks before surgery (or as soon as possible if surgery is within 2 weeks) Wobenzyme 3 tab PO QAM coenzyme Q10 100 mg capsule (CoQ-10) 100 mg PO QAM elderberry fruit and flower 1 cap PO QAM fish, borage, flaxseed oils-omega 3,6,9 comb no.1 1,200 mg capsule (Sells 3-6-9) 1 tab PO QAM vjwgbrrgvlg-hem-ssmzxmvoq-hrb 149-hyalur 500 mg-500 mg-66.7 mg tablet (Motwsjmsjpe-Exesdiuhubg-RDV (with antiox)) 1 tab PO QAM Hempworks 1 dose SUBLINGUAL HS STOP taking 24 hours before surgery diclofenac sodium 1 % topical gel (Voltaren) 2 g TOPICAL QID PRN DO NOT take the morning of surgery cetirizine 10 mg tablet 10 mg PO QAM multivitamin 1 tab PO QAM polyethylene glycol 3350 17 gram/dose oral powder (Miralax) 1 tbsp PO QAM mirabegron 25 mg tablet,extended release 24 hr (Myrbetriq) 25 mg PO UD PRN guaifenesin 600 mg tablet, extended release 12 hr (Mucinex) 600 mg PO BID Take morning of surgery With a small sip of water, OTHERWISE NOTHING TO EAT OR DRINK AFTER MIDNIGHT: albuterol sulfate 0.63 mg/3 mL solution for nebulization 0.63 mg INHALATION UD PRN (use if needed; please bring rescue inhaler with you to hospital day of surgery if possible) carvedilol 3.125 mg tablet 3.125 mg PO BID esomeprazole magnesium 40 mg capsule,delayed release (Nexium) 40 mg PO QAM fluticasone propionate 230 mcg-salmeterol 21 mcg/actuation HFA inhaler (Advair HFA) 2 puff INHALATION BID levalbuterol tartrate 45 mcg/actuation aerosol inhaler (Xopenex HFA) 1 inh INHALATION Q6H PRN (if needed) meclizine 12.5 mg tablet 12.5 mg PO TID PRN (if needed) tiotropium bromide 18 mcg capsule with inhalation device (Spiriva with HandiHaler) 2 puff INHALATION QAM acetaminophen 500 mg tablet (Pain Reliever (acetaminophen)) 500 mg PO Q8H PRN (okay to take up to 4 hours prior to surgery if needed) Take evening before surgery albuterol sulfate 0.63 mg/3 mL solution for nebulization 0.63 mg INHALATION UD PRN (if needed) carvedilol 3.125 mg tablet 3.125 mg PO BID fluticasone propionate 230 mcg-salmeterol 21 mcg/actuation HFA inhaler (Advair HFA) 2 puff INHALATION BID levalbuterol tartrate 45 mcg/actuation aerosol inhaler (Xopenex HFA) 1 inh INHALATION Q6H PRN (if needed) meclizine 12.5 mg tablet 12.5 mg PO TID PRN (if needed) montelukast 10 mg tablet (Singulair) 10 mg PO HS mirabegron 25 mg tablet,extended release 24 hr (Myrbetriq) 25 mg PO UD PRN (if needed) acetaminophen 500 mg tablet (Pain Reliever (acetaminophen)) 500 mg PO Q8H PRN (if needed) guaifenesin 600 mg tablet, extended release 12 hr (Mucinex) 600 mg PO BID Other Notes If you have any questions please call us at [phone] or [phone] or [phone] or [phone]
--- NOTE | 2020-11-02 14:46 | Anesthesiology Consultation ---
Date of Service November 02, 2020 Assessment & Plan (1) Encounter for pre-operative examination: - Awaiting surgeon-ordered PCP and cardiology clearances. 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 He states that nothing further is needed from PAT but to make surgeon/anesthesiologist aware that he will have 2 available of the appropriate blood to cover (as standard) for DOS and to be cautious if possible with blood loss given multiple antibodies/difficulty with matching. Left message for surgeon's office. - COVID screening: Per assessment on 11/02: Travel screen negative, no known COVID-19 positive contacts or current COVID-19 related symptoms. Surgeon arranging preop COVID testing. Awaiting results. - PCP note (06/24/20): "Yes" medically cleared for right TKA - Chlorhexidine wipes: Severe hives in the past with chloraprep use. No chlo rhexidine wipes given at PAT visit. - S/P Left TKA (2018) @ [facility] -- SAB + PNB. Per anesthesia records, intraoperatively, "Frequent coughing. Propofol off, suctioned. Patient awake, following commands. States she frequently has a cough. SpO2 97-98% on 6L ...face mask [illegible] Fentanyl...decreased cough." Per anesthesia progress note "no major complications." Chart Review Chart Review: Patient seen in Pre Admission Testing Teaching & Discussion Pre-Anesthesia Teaching/Discussion Notes: Instructed NPO after midnight before surgery,except medications with 15 cc of water. Medication instructions provided according to the PAT guidelines. History Surgery Operation Date: 11/12/20 11:40 Proposed Procedures p Right Total Knee Arthroplasty - Nathan Jung MD Height/Weight Height: 5 ft 1 in Weight: 74.8 kg Allergies Allergy/AdvReac Type Severity Reaction Status Date / Time chlorhexidine Allergy Severe severe Verified 10/28/20 09:27 hives with chloraprep* adhesive tape Allergy Unknown rash Verified 10/28/20 09:27 morphine AdvReac Severe N/V Verified 10/28/20 09:27 codeine AdvReac Unknown constipatio Verified 10/28/20 09:27 n oxycodone AdvReac Unknown Confusion Verified 10/28/20 09:27 Medications Home Medications Medication Instructions Recorded Confirmed Last Taken Wobenzyme 3 tab PO QAM 03/06/18 10/28/20 03/14/18 albuterol sulfate 0.63 mg/3 mL 0.63 mg INHALATION UD PRN 03/06/18 10/28/20 12/11/18 solution for nebulization carvedilol 3.125 mg tablet 3.125 mg PO BID 03/06/18 10/28/20 12/13/18 07:00 cetirizine 10 mg tablet 10 mg PO QAM 03/06/18 10/28/20 03/14/18 coenzyme Q10 100 mg capsule 100 mg PO QAM 03/06/18 10/28/20 11/29/18 (CoQ-10) diclofenac sodium 1 % topical gel 2 g TOPICAL QID PRN 03/06/18 10/28/20 11/29/18 (Voltaren) elderberry fruit and flower 1 cap PO QAM 03/06/18 10/28/20 11/29/18 esomeprazole magnesium 40 mg 40 mg PO QAM 03/06/18 10/28/20 12/12/18 08:00 capsule,delayed release (Nexium) fish, borage, flaxseed oils-omega 1 tab PO QAM 03/06/18 10/28/20 03/14/18 3,6,9 comb no.1 1,200 mg capsule ([place] 3-6-9) fluticasone propionate 230 2 puff INHALATION BID 03/06/18 10/28/20 12/12/18 08:00 mcg-salmeterol 21 mcg/actuation HFA inhaler (Advair HFA) ioeeqnsgdup-tpx-ogkuqyexq-hrb 1 tab PO QAM 03/06/18 10/28/20 11/29/18 149-hyalur 500 mg-500 mg-66.7 mg tablet (Iqwmkqejhfk-Rgpuafubggv-CPY (with antiox)) levalbuterol tartrate 45 1 inh INHALATION Q6H PRN 03/06/18 10/28/20 12/12/18 08:00 mcg/actuation aerosol inhaler (Xopenex HFA) meclizine 12.5 mg tablet 12.5 mg PO TID PRN 03/06/18 10/28/20 12/11/18 08:00 montelukast 10 mg tablet 10 mg PO HS 03/06/18 10/28/20 12/11/18 21:00 (Singulair) multivitamin 1 tab PO QAM 03/06/18 10/28/20 11/29/18 polyethylene glycol 3350 17 1 tbsp PO QAM 03/06/18 10/28/20 03/14/18 gram/dose oral powder (Miralax) tiotropium bromide 18 mcg capsule 2 puff INHALATION QAM 03/06/18 10/28/20 03/22/18 06:00 with inhalation device (Spiriva with HandiHaler) mirabegron 25 mg tablet,extended 25 mg PO UD PRN 03/13/18 10/28/20 Unknown release 24 hr (Myrbetriq) Hempworks 1 dose SUBLINGUAL HS 11/09/18 10/28/20 11/29/18 acetaminophen 500 mg tablet (Pain 500 mg PO Q8H PRN 11/09/18 10/28/20 12/11/18 08:00 Reliever (acetaminophen)) aspirin 81 mg tablet,delayed 81 mg PO BID #0 tab 12/13/18 10/28/20 11/08/18 release (Ecotrin Low Strength) guaifenesin 600 mg tablet, 600 mg PO BID 06/24/20 10/28/20 Unknown extended release 12 hr (Mucinex) Past Medical History Medical History Afib Paroxysmal- on ASA/beta fab (per cardio, patient refusing AC and is aware of increased risks) Anxiety Aortic stenosis Mild aortic valve stenosis (SHERRIE 2.73 cm, mean gradient 11.2 mmHg by remote echo), more recent echo 02/18/19 with no evidence of aortic stenosis Asthma stable Chronic obstructive pulmonary disease stable Depression GERD (gastroesophageal reflux disease) controlled History of blood transfusion Per reports no known hx of blood transfusion at 11/02/20. Known hx of positive antibodies per previous [facility] T&S (2019) Hx of hiatal hernia Hx of vertigo Memory deficit Nocturia improved Osteoarthritis Urinary, incontinence, stress female improved Exercise / Class Metabolic Activity III < 4 Walking/Shop/Light housework Past Family History Family History Grandfather Past Surgical History Surgical History History of ankle surgery left History of bunionectomy of left great toe History of cardiac cath x2 (several years ago) > no stents History of esophageal dilatation History of hysterectomy History of left cataract surgery History of right cataract surgery History of total knee replacement left History of total right hip arthroplasty Hx of bladder repair surgery Hx of colonoscopy Hx of rotator cuff surgery right Past Anesthesia History No Family Hx of Anesthesia Complications and Other S/P L TKA 2019 @ [facility] -- SAB + PNB. Per anesthesia records, intraoperatively, "Frequent coughing. Propofol off, suctioned. Patient awake, following commands. States she frequently has a cough. SpO2 97-98% on 6L ...face mask [illegible] Fentanyl...decreased cough." Per anesthesia progress note "no major complications." History of PONV No Hx of PONV and No Hx of Motion Sickness Social History Smoking Status: Never smoker Do You Dip or Chew Tobacco: No Hx Alcohol Use: No Alcohol type: beer alcohol intake frequency: holidays/special occasions only Hx Substance Use: No substance use type: does not use Substance Use Type Other:: "HEMPWORKS" 3 DROPS UNDER TONGUE BID Review of Systems Patient denies chest pain, shortness of breath, fever, chills, cough, wheezing, palpitations. Physical Exam Vital Signs VITALS BP 142/70 P 59 TEMP WNL SP02 94%RA RESP 18 PHYSICAL Full cervical extension range of motion. Full TMJ range of motion. TMD 3.5 finger breaths Mallampati Score 3 Dentition: upper partial Lungs: clear throughout to auscultation Cardiac: regular rate and rhythm, II/ systolic murmur Spine: normal Carotid arteries: negative bruit Extremities: no edema Lab Results Anesthesia Preop Results Results Anesthesia Widget: WBC 4.09 K/uL (4.8-10.8) L 11/02/20 Hgb 13.2 g/dL (12.0-16.0) 11/02/20 Hct 40.4 % (37-47) 11/02/20 Plt 178 K/uL (130-400) 11/02/20 Na 137 mmol/L (136-145) 11/02/20 K 4.4 mmol/L (3.5-5.1) 11/02/20 Cl 108 mmol/L (98-107) H 11/02/20 CO2 28 mmol/L (21-32) 11/02/20 BUN 13 mg/dl (7-18) 11/02/20 Creat 0.52 mg/dl (0.6-1.2) L 11/02/20 Glucose Level 88 mg/dl (70-99) 11/02/20 PT 10.3 Seconds (9.0-12.0) 11/02/20 INR 1.0 (0.9-1.1) 11/02/20 HA1c 5.9 % (4.5-5.6) H 11/02/20 Urine Color Yellow 11/02/20 Urine Appearance Clear (Clear) 11/02/20 Urine pH 5.5 (4.5-7.5) 11/02/20 Urine Specific [place] 1.010 (1.000-1.030) 11/02/20 Urine Protein Negative (Negative) 11/02/20 Urine Glucose (UA) Negative (Negative) 11/02/20 Urine Ketones Trace (Negative) H 11/02/20 Urine Blood Negative (Negative) 11/02/20 Urine Nitrite Negative (Negative) 11/02/20 Urine Bilirubin Negative (Negative) 11/02/20 Urine Urobilinogen Negative (Negative) 11/02/20 Urine Leukocyte Esterase Negative (Negative) 11/02/20 Blood Type A Negative 11/02/20 Antibody Screen POSITIVE A 11/02/20 Lab Comments: Low WBC > report to be forwarded to PCP for continuity of care. Positive antibodies > Matias at blood bank aware. Per Matias, nothing further needed from PAT. Testing Electrocardiogram Date: 06/23/20 SB at 55bpm. RBBB. NS TWA. Echocardiogram Date: 02/18/19 LVEF 60%. Moderate biatrial enlargement. Moderate AR. Thickened aortic valve leaflets with no evidence of stenosis.
--- NOTE | 2020-11-02 16:00 | History & Physical Report ---
Date of Service November 02, 2020 Assessment & Plan (1) Osteoarthritis of right knee: Plan: PRE-OP Diagnosis: Right knee osteoarthritis Planned Procedure: Right total knee arthroplasty Plan: Patient is scheduled to undergo this procedure at the [facility] on November [facility], [address] Nathan Jung. Risks and complications of the procedure such as: Infection, bleeding, pain, scarring, nerve blood vessel damage, weakness, wound problems, stiffness, incomplete relief of symptoms, hardware failure, hardware loosening, wear, fracture, tendon or ligament injury, blood clots, embolism, heart attack, stroke and were explained to the patient at her visit today by Dr. Jung. Informed consent to preform the procedure was obtained. Patient also understands risks of proceeding with surgical intervention during the COVID- pandemic. Currently she is asymptomatic and understands that she will need to be tested 2 to 3 days prior to surgery. Patient will obtain a CBC with differential, complete metabolic panel, PT/INR, blood type and screen, urinalysis, urine culture and sensitivity, hemoglobin A1c and a nasal culture for MRSA before her preanesthesia appointment at the hospital later this afternoon. Her EKG is currently up-to-date. Patient states that she saw her primary care provider Dr. Kurtz on October 29. The provider said that she would not clear the patient for surgery until she was seen by cardiology and cleared by them. Patient is scheduled to see a nursing student and Refugio Oneal tomorrow at 2:30. I advised her to have the report sent to us and to her primary care provider so that we can obtain the necessary clearances. During today's visit we reviewed the total knee arthroplasty packet, discussed discharge planning, reviewed the use of antibiotics prior to dental procedures following joint placement surgery, talked about lectures offered by an [facility] in regards to joint replacement surgery via zoom. I also advised the patient she will need to use the knee immobilizer for the first 2 days postoperatively. Patient states that she does have a walker she will bring with her on the day of surgery. I advised her that she will be discharged on an opioid analgesic for pain control, and anti-inflammatory, and will recommend that she purchase extra strength Tylenol and baby aspirin to use for pain control and DVT prophylaxis respectively. Patient states that she will most likely have in-home therapy for the first 2 weeks postoperatively before transitioning to outpatient therapy. Patient was scheduled for 2-week postoperative follow-up with myself on November 24 at 1:45 PM. She and her daughter verbalized understanding of all information provided during today's visit. Thanks for the care that the patient received. If they have questions or concerns should arise prior to the patient's surgery, they will contact clinic. History of Present Illness Chief Complaint: Chief Complaint: Right knee pain Primary Care Provider: Aleksandra Saleh MD History of Present Illness (including history relevant to procedure): This 84-year-old female presents the clinic today with her daughter for her preoperative history and physical. Patient has a longstanding history of right knee pain that is increased significantly over the past several months especially when walking. Patient underwent a left total knee arthroplasty back in 2018 and is concerned that the right knee issue may start to affect her left knee. She uses a walker and is ambulatory assistive device, and states that her daughter had to wheel her in in a wheelchair for today's visit. Patient has failed conservative treatment. She had extensive PT at [facility] in [facility] dating back to 2019. Patient was initially scheduled for total knee arthroplasty back in June, however she developed pneumonia which required 2 courses of antibiotics. She also had an abnormal EKG that showed a right bundle branch block and needs cardiac clearance before proceeding with surgical intervention. Patient states she has an appointment tomorrow and [facility]. Review Of Systems: A 14 point review of systems performed is unremarkable except for those things stated in the HPI and past medical history. Past Medical History: Problems: Osteoarthritis of right knee Status post total left knee replacement Preop examination Bilateral primary osteoarthritis of knee Status post right hip replacement Heart murmur Asthma COPD/emphysema GERD Hiatal hernia RBBB Procedure History Procedure Procedure Date Comments Esophageal dilator Colonoscopy Left total knee arthroplasty Tonsillectomy/adenoidectomy, hysterectomy, cholecystectomy, ovarian cyst excision, bladder tacking, ankle stabilization surgery, right rotator cuff repair, right total hip arthroplasty, bilateral cataract excision, endoscopy, cardiac catheterization. Allergies and Sensitivities: Latex(rash) morphine(vomiting) Social history: Patient denies a history of tobacco, alcohol or illicit drug use Family history: Noncontributory Current Home Meds: (Last Updated 06/23 14:28) amoxicillin (amoxicillin 500 mg oral capsule) 2,000 mg PO As indicated one hour before dental and other procedures as directed aspirin (aspirin 81 mg oral delayed release tablet) 81 mg PO Daily carvedilol (carvedilol 3.125 mg oral tablet) cefadroxil (cefadroxil 500 mg oral capsule) 500 mg PO q12h diclofenac topical (diclofenac 1% topical gel) 1 appl topical qid elderberry esomeprazole (esomeprazole 40 mg oral delayed release capsule) 40 mg PO Daily fluticasone-salmeterol (Advair Diskus 100 mcg-50 mcg) 1 puff PO bid levalbuterol (Xopenex HFA 45 mcg/inh inhalation aerosol) 1 puff inhaled q4h PRN: as needed for wheezing NOTE: restricted to continuation of home therapy in pediatric patients only. No new starts in house. - Jazmín Truong 10/22 10:32 levalbuterol (levalbuterol 0.63 mg/3 mL for nebulization) 0.63 mg NEB tid PRN: as needed for wheezing NOTE: restricted to continuation of home therapy in pediatric patients only. No new starts in house. - Jazmín Jiang 07/22 10:51 meclizine (meclizine 12.5 mg oral tablet) 12.5 mg PO tid PRN: as needed for dizziness montelukast (montelukast 10 mg oral tablet) multivitamin (Multi Vitamin+) omega-3 polyunsaturated fatty acids ([place]-3 1000 mg oral capsule) tiotropium (Spiriva 18 mcg inhalation capsule) 18 mcg inhaled Daily ubiquinone (Co Q-10) 600MG DAILY Initial Wt: 11/02 74.8 kg 165 lb Allergies Allergy/AdvReac Type Severity Reaction Status Date / Time chlorhexidine Allergy Severe severe Verified 10/28/20 09:27 hives with chloraprep* adhesive tape Allergy Unknown rash Verified 10/28/20 09:27 morphine AdvReac Severe N/V Verified 10/28/20 09:27 codeine AdvReac Unknown constipatio Verified 10/28/20 09:27 n oxycodone AdvReac Unknown Confusion Verified 10/28/20 09:27 Home Medications Medication Instructions Recorded Confirmed Type Wobenzyme 3 tab PO QAM 03/06/18 10/28/20 History albuterol sulfate 0.63 mg/3 mL 0.63 mg INHALATION UD PRN 03/06/18 10/28/20 History solution for nebulization carvedilol 3.125 mg tablet 3.125 mg PO BID 03/06/18 10/28/20 History cetirizine 10 mg tablet 10 mg PO QAM 03/06/18 10/28/20 History coenzyme Q10 100 mg capsule 100 mg PO QAM 03/06/18 10/28/20 History (CoQ-10) diclofenac sodium 1 % topical gel 2 g TOPICAL QID PRN 03/06/18 10/28/20 History (Voltaren) elderberry fruit and flower 1 cap PO QAM 03/06/18 10/28/20 History esomeprazole magnesium 40 mg 40 mg PO QAM 03/06/18 10/28/20 History capsule,delayed release (Nexium) fish, borage, flaxseed oils-omega 1 tab PO QAM 03/06/18 10/28/20 History 3,6,9 comb no.1 1,200 mg capsule ([place] 3-6-9) fluticasone propionate 230 2 puff INHALATION BID 03/06/18 10/28/20 History mcg-salmeterol 21 mcg/actuation HFA inhaler (Advair HFA) ifrtwessxxw-dsz-nahjjdowz-hrb 1 tab PO QAM 03/06/18 10/28/20 History 149-hyalur 500 mg-500 mg-66.7 mg tablet (Tsmircbuaro-Uqhbbncduiu-SBT (with antiox)) levalbuterol tartrate 45 1 inh INHALATION Q6H PRN 03/06/18 10/28/20 History mcg/actuation aerosol inhaler (Xopenex HFA) meclizine 12.5 mg tablet 12.5 mg PO TID PRN 03/06/18 10/28/20 History montelukast 10 mg tablet 10 mg PO HS 03/06/18 10/28/20 History (Singulair) multivitamin 1 tab PO QAM 03/06/18 10/28/20 History polyethylene glycol 3350 17 1 tbsp PO QAM 03/06/18 10/28/20 History gram/dose oral powder (Miralax) tiotropium bromide 18 mcg capsule 2 puff INHALATION QAM 03/06/18 10/28/20 History with inhalation device (Spiriva with HandiHaler) mirabegron 25 mg tablet,extended 25 mg PO UD PRN 03/13/18 10/28/20 History release 24 hr (Myrbetriq) Hempworks 1 dose SUBLINGUAL HS 11/09/18 10/28/20 History acetaminophen 500 mg tablet (Pain 500 mg PO Q8H PRN 11/09/18 10/28/20 History Reliever (acetaminophen)) aspirin 81 mg tablet,delayed 81 mg PO BID #0 tab 12/13/18 10/28/20 Rx release (Ecotrin Low Strength) guaifenesin 600 mg tablet, 600 mg PO BID 06/24/20 10/28/20 History extended release 12 hr (Mucinex) Past Med/Surg History Medical History Afib Paroxysmal- on ASA/beta fab (per cardio, patient refusing AC and is aware of increased risks) Anxiety Aortic stenosis Mild aortic valve stenosis (SHERRIE 2.73 cm, mean gradient 11.2 mmHg by remote echo), more recent echo 02/18/19 with no evidence of aortic stenosis Asthma stable Chronic obstructive pulmonary disease stable Depression GERD (gastroesophageal reflux disease) controlled History of blood transfusion Per reports no known hx of blood transfusion at 11/02/20. Known hx of positive antibodies per previous [facility] T&S (2019) Hx of hiatal hernia Hx of vertigo Memory deficit Nocturia improved Osteoarthritis Urinary, incontinence, stress female improved Surgical History History of ankle surgery left History of bunionectomy of left great toe History of cardiac cath x2 (several years ago) > no stents History of esophageal dilatation History of hysterectomy History of left cataract surgery History of right cataract surgery History of total knee replacement left History of total right hip arthroplasty Hx of bladder repair surgery Hx of colonoscopy Hx of rotator cuff surgery right Family History Grandfather Social History Smoking Status: Never smoker Second Hand Exposure: Yes; Hx Alcohol Use: No Hx Substance Use: No Preferred Language: Albanian Communication Ability: Effective Fight Manager Required: No Beliefs That Will Affect Care: None marital status: / Current Living Situation: Alone Feels Safe at Home: Yes Assistive Devices: Cane, Denture - Upper, Denture - Lower and Glasses Review of Systems All systems reviewed & are unremarkable except as noted in HPI & below Physical Exam Physical Exam: Physical Exam: (relevant to the procedure, including heart and lung evaluation) General: Alert and oriented x3 with proper grooming and hygiene Eyes: Pupils are equal and reactive to light with accommodation. Extraocular movements are intact Throat: Deferred due to COVID-19 precautions Cardiac: Regular rate and rhythm with a grade 4/6 holosystolic murmur heard best over the right upper sternal border Lungs: Clear to auscultation throughout with no wheezing, rales or rhonchi Abdomen: Mildly obese, nondistended, nontender with normal active bowel sounds Extremities: Right knee exam reveals the patient to be exquisitely tender to palpation over the medial and lateral joint lines. Also tender along the patellofemoral joints. She has good range of motion, however, 0 to 135 degrees. Severely antalgic gait. Neuro: Cranial nerves II through XII are intact no motor or sensory deficit Skin: Normal in appearance no open skin areas or discharge Results & Data ([facility]) Diagnostic Findings Studies (relevant to the procedure): Right knee X-rays done at her last visit show the patient be [id number] arthritis in the lateral compartment with tricompartmental osteophyte formation.
[~2020-11-12 08:28] MED LIST changes: -CEFAZOLIN 2000MG 2,000 MG/15 ML SYR IV SCH; +EPINEPHrine INJ 1 MG/ML AMP ONE; -ROPIVACAINE 0.5% 5 MG/ML 30 ML VIAL ONE; -ROPIVACAINE 0.5% HCL/PF 150 MG, BUPIVACAINE 0.5% MPF 30 ML, EPINEPHrine 0.15 MG, Ketoro... INFIL SCH; +ROPIVACAINE 0.5% HCL/PF 150 MG, BUPIVACAINE 0.75% MPF 20 ML, EPINEPHrine 0.15 MG, Ketor... INFIL SCH; -SCOPOLAMINE 1.5 MG TDSY TD SCH; +Scopolamine 1 MG TDSY TD SCH; -TRAMADOL HCL 50 MG TABLET PO SCH; +TRANEXAMIC ACID 1,000 MG **IV Intra-op IV SCH; +TRANEXAMIC ACID 1,000 MG **IV Pre-op IV SCH; -TRANEXAMIC ACID 1,000 MG x 1 **For Topical Use TOP SCH; +ceFAZolin 2000MG 2,000 MG/15 ML SYR IV SCH; +traMADol HCL 50 MG TABLET PO SCH
[2020-11-12] MEDS ORDERED: MIDAZOLAM HCL 1 MG/ML 2ML VIAL ONE (10:26)
--- NOTE | 2020-11-12 11:07 | History & Physical Bridge Note ---
Date of Service November 12, 2020 History & Physical Bridge Note I have examined the patient, reviewed the History & Physical and in the interval since the performance of the History & Physical I have noted the following changes of clinical significance: no changes noted
[2020-11-12] MEDS ORDERED: ORTHO JOINT ANESTHETIC ONE (11:21)
[2020-11-12] MEDS ORDERED: PROPOFOL IV EMULSION 10 MG/ML 20 ML VIAL IV ONE (11:25)
[2020-11-12] MEDS ORDERED: ONDANSETRON INJ 2 MG/ML 2 ML VIAL ONE (11:25)
[2020-11-12] MEDS ORDERED: LIDOCAINE 2% 2 ML VIAL/AMP(20MG/ML) INFIL ONE (12:02)
[2020-11-12] MEDS ORDERED: PHENYLEPHRINE 100MCG/ML 5ML SYR ONE (13:06)
--- NOTE | 2020-11-12 13:43 | Operative Report ---
Post Operative Report Pre & Post Diagnosis Operation Date: 11/12/20 11:20 Pre-Op Diagnosis: Right Knee Osteoarthritis Post-Op Diagnosis: Right Knee Osteoarthritis I identified the patient and participated in the time-out.: Yes Procedure Operation Date: 11/12/20 11:20 Actual Procedures p Right Total Knee Arthroplasty(Right) - Nathan Jung MD Surgeon Nathan Jung MD [employer] Sheyla San PA-C. No resident or fellow was available to assist. Estimated Blood Loss 100 Findings Consistent with Post-Op Diagnosis Specimens Bone and soft tissue contents right knee Anesthesia Type Spinal MAC Complications none Indications 84-year-old female with right knee arthritis refractory to conservative management. I had a long discussion with her about the risks and benefits of surgery, alternatives to surgery, and expected outcomes. After reviewing all these she elected to proceed with surgery. All questions were answered. Informed consent was signed. Description of Procedure Patient was identified in the preoperative holding area where the surgical site, right knee, was marked. Patient was brought back to the operating room, placed on the operating room table, and IV sedation was administered. All bony prominences were padded. Perioperative antibiotics and tranexamic acid were administered. Exam under anesthesia was performed. This demonstrated patient have range of motion 0 to 115 degrees. She was stable to varus and valgus at 0 and 30 degrees. She had mild valgus alignment approximately 7 degrees. The surgical site was prepped and draped in the normal sterile fashion. Prior to incision a multidisciplinary timeout was called. All in the room were in agreement. We began by exsanguinating the limb with an Esmarch bandage. Tourniquet was inflated to 250 mmHg. A 14 cm long incision was made over the anterior aspect of the knee. I dissected through the subcutaneous tissues to the level of the fascia. Full-thickness flaps are raised above the fascia. A median parapatellar arthrotomy was made. Half the fat pad was excised. A medial release was performed with Bovie electrocautery on the proximal tibia. Synovitis in the suprapatellar pouch was removed. The patella was then everted and held with 2 towel clips. The thickness of the patella was measured at 22 mm. Patellar resection was performed. Caliper showed the patella thickness now to be 13 mm. A size 38 trial was placed and had a great fit. The 3 drill holes were placed then the trial button was placed. The patellar thickness was now 23 mm which I was very happy with. The patellar trial was then removed, the patella was everted and the knee was flexed up. Osteophytes were removed from the femoral condyles and intercondylar notch. The ACL and PCL were excised. Intramedullary drill guide was drilled into the femur. Distal femoral cutting guide was placed set at 5 degrees of valgus to resect 9 mm off the distal femur. Distal femoral resection was made without difficulty. The tibia was then exposed. The lateral meniscus was sharply excised. The tibial cutting jig was positioned to resect 10 mm off the less involved compartment. The jig was then pinned in position and the tibial cut was made. We then brought the knee into full extension. Lamina spreaders were placed. The medial meniscus was excised. The extension block was then placed for 6 mm thickness poly. This gave us full extension and excellent stability to varus and valgus. Next the knee was flexed up and the femoral sizing guide was placed. The patient sized to a size 5 femur. The 3 degree external rotation jig was used to create 2 holes in the distal femur. The jig was removed and the holes were compared to Whitesides axis and the epicondylar axis. We were happy with the rotation, and therefore placed a size three 4-in-1 cutting jig and pinned this into position. Our 4 cuts were made. The cutting jig was removed. The flexion block was then placed with the knee held at 90 degrees. There was excellent stability to varus and valgus at 90 degrees with no gapping medially or laterally. Next the box cutting jig was placed on the distal femur. The box cut was made and the femoral trial was impacted into position. The tibia was sized to a 5 for a fixed bearing component. The tibial tray was positioned in external rotation on the cut tibial surface and the knee was brought through a full range of motion. We then pinned the tibial tray into position and used the intramedullary drill followed by the keel punch. The trial polyethylene was then placed and the knee was brought through a full range of motion. I was very happy with the stability through a full range of motion, and the patellar tracking was excellent. Next the trial components were removed. I then injected the posterior capsule and periosteum with the periarticular injection cocktail. The bone cuts were then irrigated and dried while the cement was mixed on the back table. The femoral component was cemented on first. Excess cement was removed. A lap sponge was placed over the femoral component for protection, then the tibia was subluxated anteriorly. The tibial component was then cemented in place. Again excess cement was removed. The trial polyethylene was then placed and the knee was brought into full extension and held there until the cement cured. The patella was cemented and clamped. Dilute Betadine solution was then allowed to irrigate the knee while the cement cured. Once the cement was fully cured, the tourniquet was let down and meticulous hemostasis was ensured. The wound was irrigated out with copious amounts normal saline. The knee was brought through a full range of motion and we are very happy with the patella tracking and the stability. Therefore, the trial tibial polyethylene was removed and the real size 5 polyethylene 6 mm thickness was placed. We then began to close. Interrupted 0 Vicryl suture was used to repair the patellar retinaculum in [id number] fashion. The quadriceps and patellar tendons were run with #1 Ethibond. The deep dermal layer was closed with interrupted 2-0 Vicryl. Dermabond and Zipline was used for the skin. A compressive dressing was placed. Patient's sedation was lifted and was transferred to recovery room in stable condition. Summary of implants: Depuy attune posterior Stabilized Cemented Femur, size 5 DePuy attune size 4 tibial tray DePuy attune size 5 polyethylene insert 6 mm thickness Medialized dome patella, size 38 2 batches of simplex high viscosity bone cement with gentamicin Postoperative course: Patient will be admitted to the floor for pain control and monitoring. Weightbearing as tolerated with no knee range of motion for 48 hours. Aspirin for DVT prophylaxis. I attest to the content of the Intraoperative Record and any orders documented therein. Any exceptions are noted below.
--- NOTE | 2020-11-12 13:55 | Operative Report ---
Post Operative Report Pre & Post Diagnosis Operation Date: 11/12/20 11:20 Pre-Op Diagnosis: Right Knee Osteoarthritis Post-Op Diagnosis: Right Knee Osteoarthritis I identified the patient and participated in the time-out.: Yes Procedure Operation Date: 11/12/20 11:20 Actual Procedures p Right Total Knee Arthroplasty(Right) - Nathan Jung MD Surgeon Nathan Jung MD Resident Doctor Sheyla San PA-C. No resident or fellow was available to assist. Estimated Blood Loss 100 Findings Consistent with Post-Op Diagnosis Right knee DJD Specimens Bone and soft tissue Drains None Anesthesia Type Spinal MAC Description of Procedure Patient was taken to the operating room and placed under spinal anesthesia with IV sedation. Timeout was performed. She was prepped and draped in routine sterile fashion. She was given 2 g of IV Ancef for surgical prophylaxis. I was present during the entire case and assisted with positioning, tissue retraction, implantation of hardware, closure and dressings. Please see Dr. Jung's operative report for further detail. Patient was awakened and transferred to the recovery room in stable condition. I attest to the content of the Intraoperative Record and any orders documented therein. Any exceptions are noted below.
--- NOTE | 2020-11-12 14:19 | Anesthesiology Progress Note ---
Date of Service November 12, 2020 Anesthesia Post Procedure Vital Signs Vital Signs: Temp Pulse Pulse Resp BP BP Pulse Ox 11/12/20 14:15 65 20 127/78 98 11/12/20 14:05 63 20 120/74 98 11/12/20 13:54 36.4 C L 70 18 119/71 95 11/12/20 10:10 63 20 170/75 H 98 11/12/20 09:20 36.6 C 60 20 145/93 H 97 Transfer of Care Handoff Completed per policy Notes Mental Status: alert / awake / arousable and participated in evaluation Patient Amnestic to Procedure: Yes Nausea / Vomiting: adequately controlled Pain: adequately controlled Airway Patency, RR, SpO2: stable & adequate BP & HR: stable & adequate Hydration State: stable & adequate Anesthetic Complications: no major complications apparent and Pt Satisfied with anesthetic care
--- NOTE | 2020-11-12 14:25 | XRay Report ---
TWO VIEWS RIGHT KNEE CLINICAL HISTORY: Postoperative examination. FINDINGS: AP and crosstable lateral portable views of the right knee are obtained. A right knee arthr oplasty is in near anatomic alignment. There has been undersurface remodeling of the patella. No acut e fracture is seen. Soft tissue edema and subcutaneous gas are expected postoperative findings. IMPRESSION: Expected postoperative changes status post right knee arthroplasty. No acute fracture is seen. ACT 112: Negative or not required by law. Electronically signed by: Andres Salgado M.D. 11/12/2020 2:23 PM
[2020-11-12] MEDS ORDERED: SODIUM CHLORIDE 0.9% 1000ML 1,000 ML IV SCH (14:58)
[2020-11-12] MEDS ORDERED: ONDANSETRON INJ 2 MG/ML 2 ML VIAL IV PRN (14:58)
[2020-11-12] MEDS ORDERED: bisacodyL 10 MG SUPP PR PRN (14:58)
[2020-11-12] MEDS ORDERED: NALOXONE HCL 0.4 MG/1 ML VIAL/CARP IV PRN (14:58)
[2020-11-12] MEDS ORDERED: MAGNESIUM HYDROXIDE SUSP 30 ML UDC PO PRN (14:58)
[2020-11-12] MEDS ORDERED: METOCLOPRAMIDE HCL INJ 5 MG/ML 2 ML VIAL IV PRN (14:58)
[2020-11-12] MEDS ORDERED: HYDROmorphone INJ 0.5 MG/0.5 ML SYR IV PRN (14:58)
[2020-11-12] MEDS ORDERED: traMADol HCL 50 MG TABLET PO PRN (14:58)
[2020-11-12] MEDS ORDERED: MIRABEGRON ER 25 MG TAB PO PRN (14:58)
[2020-11-12] MEDS ORDERED: LEVALBUTEROL TARTRATE 15 GM HFA.AER.AD INH PRN (14:58)
[2020-11-12] MEDS ORDERED: MECLIZINE 12.5 MG TAB PO PRN (14:58)
[2020-11-12] MEDS ORDERED: ALBUTEROL 0.083% NEBU SOLN 3 ML VIAL INH PRN (16:09)
--- NOTE | 2020-11-12 16:27 | Discharge Summary ---
Date of Service November 12, 2020 Admission HPI Per Admitting Provider History of Present Illness (including history relevant to procedure): This 84-year-old female presents the clinic today with her daughter for her preoperative history and physical. Patient has a longstanding history of right knee pain that is increased significantly over the past several months especially when walking. Patient underwent a left total knee arthroplasty back in 2018 and is concerned that the right knee issue may start to affect her left knee. She uses a walker and is ambulatory assistive device, and states that her daughter had to wheel her in in a wheelchair for today's visit. Patient has fa iled conservative treatment. She had extensive PT at [facility] in [facility] dating back to 2019. Patient was initially scheduled for total knee arthroplasty back in June, however she developed pneumonia which required 2 courses of antibiotics. She also had an abnormal EKG that showed a right bundle branch block and needs cardiac clearance before proceeding with surgical intervention. Patient states she has an appointment tomorrow and [facility]. Review Of Systems: A 14 point review of systems performed is unremarkable except for those things stated in the HPI and past medical history. Past Medical History: Problems: Osteoarthritis of right knee Status post total left knee replacement Preop examination Bilateral primary osteoarthritis of knee Status post right hip replacement Heart murmur Asthma COPD/emphysema GERD Hiatal hernia RBBB Procedure History Procedure Procedure Date Comments Esophageal dilator Colonoscopy Left total knee arthroplasty Tonsillectomy/adenoidectomy, hysterectomy, cholecystectomy, ovarian cyst excision, bladder tacking, ankle stabilization surgery, right rotator cuff repair, right total hip arthroplasty, bilateral cataract excision, endoscopy, cardiac catheterization. Allergies and Sensitivities: Latex(rash) morphine(vomiting) Social history: Patient denies a history of tobacco, alcohol or illicit drug use Family history: Noncontributory Current Home Meds: (Last Updated 06/23 14:28) amoxicillin (amoxicillin 500 mg oral capsule) 2,000 mg PO As indicated one hour before dental and other procedures as directed aspirin (aspirin 81 mg oral delayed release tablet) 81 mg PO Daily carvedilol (carvedilol 3.125 mg oral tablet) cefadroxil (cefadroxil 500 mg oral capsule) 500 mg PO q12h diclofenac topical (diclofenac 1% topical gel) 1 appl topical qid elderberry esomeprazole (esomeprazole 40 mg oral delayed release capsule) 40 mg PO Daily fluticasone-salmeterol (Advair Diskus 100 mcg-50 mcg) 1 puff PO bid levalbuterol (Xopenex HFA 45 mcg/inh inhalation aerosol) 1 puff inhaled q4h PRN: as needed for wheezing NOTE: restricted to continuation of home therapy in pediatric patients only. No new starts in house. - Jazmín Truong 10/22 10:32 levalbuterol (levalbuterol 0.63 mg/3 mL for nebulization) 0.63 mg NEB tid PRN: as needed for wheezing NOTE: restricted to continuation of home therapy in pediatric patients only. No new starts in house. - Jazmín Jiang 07/22 10:51 meclizine (meclizine 12.5 mg oral tablet) 12.5 mg PO tid PRN: as needed for dizziness montelukast (montelukast 10 mg oral tablet) multivitamin (Multi Vitamin+) omega-3 polyunsaturated fatty acids ([place]-3 1000 mg oral capsule) tiotropium (Spiriva 18 mcg inhalation capsule) 18 mcg inhaled Daily ubiquinone (Co Q-10) 600MG DAILY Initial Wt: 11/02 74.8 kg 165 lb Discharge Data Consultations 11/12/20 14:58 Consult Hospitalist Routine Procedures Performed Operation Date: 11/12/20 11:20 Actual Procedures p Right Total Knee Arthroplasty(Right) - Nathan Jung MD Hospital Course (1) Osteoarthritis of right knee: Patient was admitted to [facility] on November 12, 2020 after undergoing an elective Right total knee arthroplasty by Dr. Nathan Parikh. Surgery was performed with spinal anesthesia and IV sedation, and p eripheral nerve block. She tolerated the surgery well without any intraoperative complications. She was given 2 g of IV Ancef for surgical prophylaxis which was continued for 24 hours after surgery. Postoperatively she was allowed out of bed, weight-bear as tolerated on her right lower extremity. She was given a knee immobilizer to wear when out of bed for 48 hours after her procedure. She was given a regular diet. A hospitalist consult was placed for postoperative medical management. Her home medications were continued appropriately. She was placed on IV Dilaudid, IV Toradol, p.o. Tylenol and tramadol for postoperative pain control. She was allowed out of bed as tolerated with assistance with a walker. Physical therapy and Occupational Therapy consult was placed. Postoperative day 1, her surgical dressings were removed. Silverlon remained in place. Dressing was clean, dry and intact. She was seen and evaluated by physical therapy and Occupational Therapy and did well out of bed, but did have some issues with confusion and safety when out of bed. It was recommended by PT and OT both that she stay another day for more PT/OT and reassess safety for discharge to her home. Case management saw and evaluated the patient for disposition needs. Home health with Physical therapy was recommended. Services were accepted by insurance. They will start over the weekend. She can weight-bear as tolerated with a walker. DARREN stockings to remain in place for 2 weeks. Discharge instructions were provided with the patient. Her labs remained stable during her inpatient stay. Her vital signs were stable during her inpatient stay. She tolerated a regular diet. She developed no postoperative complications. She was discharged to her home in stable condition on November 14, 2020 with her family. Hospitalist service followed her during her inpatient stay.
[2020-11-12] MEDS ORDERED: PNEUMOCOCCAL POLYSACCHARIDES 25 MCG/0.5 ML VIAL/SYR IM ONE (16:34)
[2020-11-12] MEDS: KETOROLAC TROMETHAMINE 15 MG/ML VIAL IV SCH ×2 (17:02→21:37)
[2020-11-12] MEDS: ACETAMINOPHEN 500 MG TAB PO SCH ×2 (17:03→21:36)
[2020-11-12] MEDS: Scopolamine CHECK PATCH PLACEMENT SCH ×2 (17:04→23:19)
--- NOTE | 2020-11-12 17:04 | Hospitalist Consultation ---
Date of Consultation November 12, 2020 Assessment & Plan (1) S/P knee replacement: Doing well postoperatively Postoperative care as per orthopedic surgery Pain control, bowel regimen PT/OT Follow CBC and BMP in the morning Scopolamine patch in place to prevent postoperative nausea (2) Hypertension: Blood pressures are well controlled Continue home carvedilol 3.125 mg p.o. twice daily (3) Chronic obstructive pulmonary disease: No acute issues Continue home Umeclidinium inhaler once daily as well as fluticasone/Vilanterol inhaler once daily and levalbuterol inhaler as needed (4) Afib: With history of paroxysmal atrial fibrillation, she has declined anticoagulation in the past Her examination consistent with regular, sinus rhythm-she is not on telemetry po stoperatively and does not need to be There is mention in the PCP notes of being on flecainide in the past-this is not on her home medication list Continue aspirin Monitor with physical examination and vital signs for recurrence of atrial fibrillation (5) Aortic regurgitation: Mild to moderate on recent echocardiogram Follows with cardiology as an outpatient (6) Hx of gastroesophageal reflux (GERD): Continue PPI (7) DVT prophylaxis: Aspirin 81 mg p.o. twice daily, SCDs Disposition-continued stay Hospital service will continue to follow along History of Present Illness Reason for Consultation: Postoperative medical management Requesting Physician: Dr. Jung Attending Physician: Nathan Jung MD History of Present Illness This patient is an 84-year-old female with a history of mild-moderate aortic regurgitation, atrial fibrillation-declines anticoagulation other than aspirin, HTN, COPD, GERD with hiatal hernia, who is admitted for right total knee arthroplasty. Hospitalist service was consulted for postoperative medical management. She reports she is doing very well postoperatively. She denies any nausea or abdominal pain, last bowel movement was yesterday. Denies chest pain. She has chronic shortness of breath and this is unchanged. She uses a nebulizer at home occasionally but no oxygen at home. She has minimal pain in the right knee. She is eating and drinking. She has no complaints at the time I saw her. Allergies Allergy/AdvReac Type Severity Reaction Status Date / Time chlorhexidine Allergy Severe severe Verified 11/12/20 09:11 hives with chloraprep* adhesive tape Allergy Unknown rash Verified 11/12/20 09:11 Latex, Natural Rubber Allergy Rash Verified 11/12/20 12:50 morphine AdvReac Severe N/V Verified 11/12/20 09:11 codeine AdvReac Unknown constipatio Verified 11/12/20 09:11 n oxycodone AdvReac Unknown Confusion Verified 11/12/20 09:11 Home Medications Medication Instructions Recorded Confirmed Type Wobenzyme 3 tab PO QAM 03/06/18 11/12/20 History albuterol sulfate 0.63 mg/3 mL 0.63 mg INHALATION UD PRN 03/06/18 11/12/20 History solution for nebulization carvedilol 3.125 mg tablet 3.125 mg PO BID 03/06/18 11/12/20 History cetirizine 10 mg tablet 10 mg PO QAM 03/06/18 11/12/20 History coenzyme Q10 100 mg capsule 100 mg PO QAM 03/06/18 11/12/20 History (CoQ-10) diclofenac sodium 1 % topical gel 2 g TOPICAL QID PRN 03/06/18 11/12/20 History (Voltaren) elderberry fruit and flower 1 cap PO QAM 03/06/18 11/12/20 History esomeprazole magnesium 40 mg 40 mg PO QAM 03/06/18 11/12/20 History capsule,delayed release (Nexium) fish, borage, flaxseed oils-omega 1 tab PO QAM 03/06/18 11/12/20 History 3,6,9 comb no.1 1,200 mg capsule (Salkum 3-6-9) fluticasone propionate 230 2 puff INHALATION BID 03/06/18 11/12/20 History mcg-salmeterol 21 mcg/actuation HFA inhaler (Advair HFA) yshuippenmp-exn-nmjxqrteq-hrb 1 tab PO QAM 03/06/18 11/12/20 History 149-hyalur 500 mg-500 mg-66.7 mg tablet (Eudcvjfpcpa-Llhoxpmdnmf-TRA (with antiox)) levalbuterol tartrate 45 1 inh INHALATION Q6H PRN 03/06/18 11/12/20 History mcg/actuation aerosol inhaler (Xopenex HFA) meclizine 12.5 mg tablet 12.5 mg PO TID PRN 03/06/18 11/12/20 History montelukast 10 mg tablet 10 mg PO HS 03/06/18 11/12/20 History (Singulair) multivitamin 1 tab PO QAM 03/06/18 11/12/20 History polyethylene glycol 3350 17 1 tbsp PO QAM 03/06/18 11/12/20 History gram/dose oral powder (Miralax) tiotropium bromide 18 mcg capsule 2 puff INHALATION QAM 03/06/18 11/12/20 History with inhalation device (Spiriva with HandiHaler) mirabegron 25 mg tablet,extended 25 mg PO UD PRN 03/13/18 11/12/20 History release 24 hr (Myrbetriq) Hempworks 1 dose SUBLINGUAL HS 11/09/18 11/12/20 History acetaminophen 500 mg tablet (Pain 500 mg PO Q8H PRN 11/09/18 11/12/20 History Reliever (acetaminophen)) aspirin 81 mg tablet,delayed 81 mg PO BID #0 tab 12/13/18 11/12/20 Rx release (Ecotrin Low Strength) guaifenesin 600 mg tablet, 600 mg PO BID 06/24/20 11/12/20 History extended release 12 hr (Mucinex) Patient History Medical History (Updated 11/12/20 @ 17:19 by Susana Galvan MD) Afib Paroxysmal- on ASA/beta fab (per cardio, patient refusing AC and is aware of increased risks) Anxiety Aortic regurgitation Aortic stenosis Mild aortic valve stenosis (SHERRIE 2.73 cm, mean gradient 11.2 mmHg by remote echo), more recent echo 02/18/19 with no evidence of aortic stenosis Asthma stable Chronic obstructive pulmonary disease stable Depression GERD (gastroesophageal reflux disease) controlled History of blood transfusion Per reports no known hx of blood transfusion at 11/02/20. Known hx of positive antibodies per previous [facility] T[facility] (2019) Hx of hiatal hernia Hx of vertigo Memory deficit Nocturia improved Osteoarthritis Urinary, incontinence, stress female improved Surgical History History of ankle surgery left History of bunionectomy of left great toe History of cardiac cath x2 (several years ago) > no stents History of esophageal dilatation History of hysterectomy History of left cataract surgery History of right cataract surgery History of total knee replacement left History of total right hip arthroplasty Hx of bladder repair surgery Hx of colonoscopy Hx of rotator cuff surgery right Family History Grandfather Social History Smoking Status: Never smoker Second Hand Exposure: Yes; Do You Dip or Chew Tobacco: No; Tobacco Cessation Education Requested by Patient: No Hx Alcohol Use: No Hx Substance Use: No Preferred Language: Bulgarian Communication Ability: Effective Cms Expert Required: No Beliefs That Will Affect Care: None marital status: / Current Living Situation: Alone Other Information That Helps Us Care for You: No Feels Safe at Home: Yes Safety Concerns: Feels Safe At This Time Assistive Devices: Brace/Splint/Immobilizer, Denture - Upper, Glasses and Walker Review of Systems Review of Systems: All systems reviewed & are unremarkable except as noted in HPI & below Physical Exam Constitutional: WD/WN, vitals as above Eyes: + anicteric sclerae Neck: trachea midline, no thyromegaly Respiratory: normal respiratory effort, lungs clear to auscultation Cardiovascular: Rate/Rhythm: regular rate and regular rhythm Heart Sounds: + murmur (2/6 diastolic murmur at the RUSB) Chest (Breasts): Chest: normal inspection of chest Gastrointestinal (Abdomen): normal bowel sounds, soft, nontender, no hepatosplenomegaly Musculoskeletal: Extremities: + extremities abnormal to inspection (RLE in Brady wrap not removed, distally NVI), no cyanosis and no clubbing Skin: no rashes, warm and dry Neurologic: moves all extremities and awake; no focal motor deficits Psychiatric: A+Ox3, euthymic affect Lymphatic: no lymphedema Results & Data Results & Data ([facility]) Vital Signs (Past 12 Hours) Vital Signs Temp Pulse Pulse Pulse Resp BP BP 11/12/20 16:10 36.4 C L 53 L 20 148/88 H 11/12/20 15:35 36.4 C L 60 16 133/73 11/12/20 15:28 36.4 C L 20 134/77 11/12/20 15:00 36.3 C L 56 L 16 127/81 11/12/20 14:45 59 L 20 133/73 11/12/20 14:30 62 20 118/70 11/12/20 14:25 36.2 C L 77 16 130/72 11/12/20 14:15 65 20 127/78 11/12/20 14:05 63 20 120/74 11/12/20 13:54 36.4 C L 70 18 119/71 11/12/20 10:10 63 20 170/75 H 11/12/20 09:20 36.6 C 60 20 145/93 H Pulse Ox 11/12/20 16:10 94 11/12/20 15:35 92 11/12/20 15:28 93 11/12/20 15:00 93 11/12/20 14:45 96 11/12/20 14:30 93 11/12/20 14:25 96 11/12/20 14:15 98 11/12/20 14:05 98 11/12/20 13:54 95 11/12/20 10:10 98 11/12/20 09:20 97 Laboratory Results Preoperative laboratory values reviewed PG Care Time/CCT Total # of Minutes Spent Total Time Spent with Patient: Total time spent is greater than 50% in coordination of care (as documented) at patient's floor/unit and/or counseling patient: Coding Level of Care Code 61646 Inpt Consult Level 2 Diagnoses Hx of gastroesophageal reflux (GERD) Z87.19 Hypertension I10 Hypertension type: essential hypertension DVT prophylaxis Z29.9 S/P knee replacement Z96.659 Chronic obstructive pulmonary disease J44.9 COPD type: unspecified COPD Afib I48.0 Atrial fibrillation type: paroxysmal Aortic regurgitation I35.1 (1) Afib Atrial fibrillation type: paroxysmal Qualified Code(s): I48.0 - Paroxysmal atrial fibrillation (2) Chronic obstructive pulmonary disease COPD type: unspecified COPD Qualified Code(s): J44.9 - Chronic obstructive pulmonary disease, unspecified (3) Hypertension Hypertension type: essential hypertension Qualified Code(s): I10 - Essential (primary) hypertension
[2020-11-12] MEDS: ceFAZolin 2000MG 2,000 MG/15 ML SYR IV SCH (19:52)
[2020-11-12] MEDS: DOCUSATE SODIUM 100 MG CAP PO SCH (20:01)
[2020-11-12] MEDS: ASPIRIN 81 MG ECTAB PO SCH (20:01)
[2020-11-12] MEDS: carvediloL 3.125 MG TAB PO SCH (20:02)
[2020-11-12] MEDS: SENNA 8.6 MG TAB PO SCH (20:02)
[2020-11-12] MEDS: MONTELUKAST SODIUM 10 MG TABLET PO SCH (20:04)
[2020-11-12] MEDS: guaiFENesin 600 MG TABCR PO SCH (20:04)
[2020-11-12] MEDS ORDERED: COUGH DROP (SUGAR FREE) LOZ 24 LOZ/1 BOX BUCCAL PRN (22:47)
[2020-11-13] MEDS: ceFAZolin 2000MG 2,000 MG/15 ML SYR IV SCH (04:58)
[2020-11-13] MEDS: KETOROLAC TROMETHAMINE 15 MG/ML VIAL IV SCH ×2 (04:59→09:41)
[2020-11-13] MEDS: ACETAMINOPHEN 500 MG TAB PO SCH ×3 (05:03→22:01)
[2020-11-13 06:33] LABS: Hematocrit (blood only) 32.4 % (37-47); Hemoglobin 10.5 g/dL (12.0-16.0); Mean Corpuscular Hemoglobin 29.7 pg (25-34); Mean Corpuscular Hgb Conc 32.4 g/dL (32-36); Mean Corpuscular Volume 91.5 fL (80-100); Mean Platelet Volume 9.5 fL (7.4-10.4); Platelet Count 165 K/uL (130-400); RDW Coefficient of Variation 14.3 % (11.5-14.5); RDW Standard Deviation 48.6 fL (36.4-46.3); Red Blood Count 3.54 M/uL (4.2-5.4); White Blood Count 8.54 K/uL (4.8-10.8)
[2020-11-13 07:03] LABS: BUN Creatinine Ratio 24.5 (10-20); Calcium 8.6 mg/dl (8.5-10.1); Creatinine Clr Calc Pharmacy 60.1 ml/min; Est GFR (African American) 94.8 ml/min; Est GFR (Non-African American) 81.8 ml/min; Potassium 4.2 mmol/L (3.5-5.1)
[2020-11-13] MEDS: Scopolamine CHECK PATCH PLACEMENT SCH ×3 (07:52→23:10)
[2020-11-13] MEDS ORDERED: dexAMETHasone 4 MG TAB PO SCH (08:00)
--- NOTE | 2020-11-13 08:06 | Orthopedic Progress Note ---
Date of Service November 13, 2020 Assessment & Plan (1) Status post total right knee replacement using cement: Plan: Patient was seen today in conjunction with Dr. Jung, who also evaluated the patient and concurred with today's diagnosis and treatment plan. Patient's external dressings were removed by me. Silverlon remained in place. She will leave this in place until seen in the office in 2 weeks for staple removal. Call the office with any other concerns. Postoperative prescriptions were sent to her pharmacy. Written discharge instructions were provided. Continue using her walker for ambulation. Weight-bear as tolerated. Discharge today after PT/OT. Admission and Anticipated Discharge Date Admission Date: November 12, 2020 Subjective Patient is seen in her room this morning. States she has no pain. She also states she did not sleep well secondary to disruptions and her roommate. She feels ready for discharge to home. Denies any chest pain, shortness of breath, nausea, vomiting, or abdominal pain. No other complaints. She has been out of bed using her walker. Review of Systems Review of Systems: Unchanged from yesterday. Physical Exam Physical Exam: General: Well-developed, well-nourished, elderly female, in no acute distress. Laying on the bed. Alert and oriented. Conversive. Skin: Warm dry with good turgor. No rashes or lesions. No ecchymosis or erythema. Expected postoperative edema at the knee. Musculoskeletal: Postsurgical dressings were intact. Upon removal, there is no strikethrough from bleeding. Silverlon dressing is in place. It is dry. She has intact motor function to the toes and ankle. She is able to dorsiflex and plantarflex easily. She is able to set her quad and perform a straight leg rais e. Bends easily to around 40 degrees. Neurologic: Gross sensation is intact across all aspects of the left leg by soft touch. Peripheral pulses are 2+. Results & Data ([facility]) Vital Signs (Past 12 Hours) Vital Signs Temp Pulse Resp BP Pulse Ox 11/13/20 07:03 36.6 C 49 L 19 131/70 91 11/13/20 05:44 36.9 C 53 L 16 135/68 92 11/12/20 22:50 36.7 C 56 L 16 119/64 92 Laboratory Results H&H this morning are 10.5 and 32.4. White count of 8.5. PRP is unremarkable, with sodium 137, potassium 4.2, chloride 108, BUN 15, creatinine 0.63. Glucose 123.
[2020-11-13] MEDS ORDERED: NON-FORMULARY MEDICATION (Coenzyme Q10 [Coq-10] 100 mg Capsule) PO SCH (09:00)
[2020-11-13] MEDS: FLUTICASONE/VILANTEROL 100/25MCG 14 PUFFS/INHALER INH SCH (09:41)
[2020-11-13] MEDS: POLYETHYLENE (MIRALAX) 17 GM PACK PO SCH (09:41)
[2020-11-13] MEDS: UMECLIDINIUM BROMIDE 62.5MCG/BLISTER 7 PUFFS/INHALER INH SCH (09:42)
[2020-11-13] MEDS: CETIRIZINE HCL 10 MG TABLET PO SCH (09:42)
[2020-11-13] MEDS: MULTIVITAMIN TAB PO SCH (09:42)
[2020-11-13] MEDS: PANTOprazole 40 MG TAB PO SCH (09:42)
[2020-11-13] MEDS: guaiFENesin 600 MG TABCR PO SCH ×2 (09:42→20:16)
[2020-11-13] MEDS: DOCUSATE SODIUM 100 MG CAP PO SCH ×2 (09:42→20:16)
[2020-11-13] MEDS: ASPIRIN 81 MG ECTAB PO SCH ×2 (09:43→20:17)
[2020-11-13] MEDS: carvediloL 3.125 MG TAB PO SCH ×2 (09:43→20:17)
--- NOTE | 2020-11-13 11:13 | Hospitalist Progress Note ---
Date of Service November 13, 2020 Assessment & Plan (1) S/P knee replacement: Plan: - Doing well postoperatively and pain undercontrol - Postoperative care as per orthopedic surgery - Pain control, bowel regimen - PT/OT - AM labs acceptable (2) Hypertension: Plan: - Blood pressures are well controlled - Continue home carvedilol 3.125 mg p.o. twice daily (3) Chronic obstructive pulmonary disease: Plan: - No acute issues - Continue home Umeclidinium inhaler once daily as well as fluticasone/Vilanterol inhaler once daily and levalbuterol inhaler as needed (4) Afib: Plan: - With history of paroxysmal atrial fibrillation, she has declined anticoagulation in the past; examines in NSR with appropriate rates - There is mention in the PCP notes of being on flecainide in the past-this is not on her home medication list - Continue aspirin (5) Aortic regurgitation: Plan: - Mild to moderate on recent echocardiogram - Follows with cardiology as an outpatient (6) Hx of gastroesophageal reflux (GERD): Plan: - Continue PPI (7) DVT prophylaxis: Plan: - Aspirin 81 mg p.o. twice daily, SCDs Disposition-anticipate discharge home today per primary service; if remains in house hospitalists team can continue to follow Admission and Anticipated Discharge Date Admission Date: November 12, 2020 Subjective Doing well this AM. Reports no pain. Is awaiting PT/OT this AM with anticipating of returning home today. She verbalizes no new complaints today Review of Systems Review of Systems: REVIEW OF SYSTEMS General/Constitutional: Denies fever/chills, fatigue, weakness ENT: Denies visual changes, nasal drainage, sore throat, trouble swallowing Cardiovascular: Denies chest pain, palpitations, edema Respiratory: Denies cough, sputum, SOB, wheezing, orthopnea GI: Denies nausea, vomiting, abdominal pain, constipation, diarrhea, melena/hematochezia : Denies dysuria Musculoskeletal: Denies joint/muscle aches, weakness, swelling Neurologic: Denies dizziness/lightheadedness, numbness/tingling, weakness Hematologic/Lymphatic: Denies bleeding/clotting abnormalities Skin: Denies rash, itch, new skin changes Physical Exam Physical Exam: PHYSICAL EXAM General Appearance: WDWN in NAD who is A&O x 3 HEENT: Head is normocephalic/atraumatic; Hearing grossly intact; Mucous membranes moist; Pharynx negative for exudate/lesions Neck: Supple; Trachea midline; Neg JVD Heart: RRR; murmur Lungs: CTA in all lung goodson bilaterally; Respirations unlabored; Neg accessory muscle use Abdomen: Soft, non-tender, non-distended; Positive BS x 4 quadrants Extremities: Capillary refill < 2 seconds; Neg cyanosis or edema Neurological: Speech clear; Gross motor/sensory function intact; Neg focal neurologic deficits Psychiatric: Appropriate mood/affect Skin: Normal Color; Warm/Dry; Neg rashes, ecchymosis, lacerations/ulcerations Results & Data Results & Data ([facility]) Vital Signs (Past 12 Hours) Vital Signs Temp Pulse Resp BP Pulse Ox 11/13/20 07:03 36.6 C 49 L 19 131/70 91 11/13/20 05:44 36.9 C 53 L 16 135/68 92 PG Care Time/CCT Total # of Minutes Spent Total Time Spent with Patient: Total time spent is greater than 50% in coordination of care (as documented) at patient's floor/unit and/or counseling patient: Coding Level of Care Code 25875 Inpt Consult Level 2 Diagnoses S/P knee replacement Z96.659 Hypertension I10 Hypertension type: essential hypertension Chronic obstructive pulmonary disease J44.9 COPD type: unspecified COPD Afib I48.0 Atrial fibrillation type: paroxysmal Aortic regurgitation I35.1 Hx of gastroesophageal reflux (GERD) Z87.19 DVT prophylaxis Z29.9 (1) Afib Atrial fibrillation type: paroxysmal Qualified Code(s): I48.0 - Paroxysmal atrial fibrillation (2) Chronic obstructive pulmonary disease COPD type: unspecified COPD Qualified Code(s): J44.9 - Chronic obstructive pulmonary disease, unspecified (3) Hypertension Hypertension type: essential hypertension Qualified Code(s): I10 - Essential (primary) hypertension
[2020-11-13] MEDS: SENNA 8.6 MG TAB PO SCH (20:08)
[2020-11-13] MEDS: MONTELUKAST SODIUM 10 MG TABLET PO SCH (20:16)
[2020-11-14] MEDS: ACETAMINOPHEN 500 MG TAB PO SCH ×2 (04:56→14:12)
[2020-11-14 05:51] LABS: Hematocrit (blood only) 32.2 % (37-47); Hemoglobin 10.4 g/dL (12.0-16.0); Mean Corpuscular Hemoglobin 29.4 pg (25-34); Mean Corpuscular Hgb Conc 32.3 g/dL (32-36); Mean Platelet Volume 9.6 fL (7.4-10.4); Platelet Count 149 K/uL (130-400); RDW Coefficient of Variation 14.6 % (11.5-14.5); RDW Standard Deviation 48.2 fL (36.4-46.3); Red Blood Count 3.54 M/uL (4.2-5.4); White Blood Count 5.12 K/uL (4.8-10.8)
[2020-11-14 06:14] LABS: BUN Creatinine Ratio 19.8 (10-20); Calcium 8.9 mg/dl (8.5-10.1); Creatinine Clr Calc Pharmacy 49.1 ml/min; Est GFR (African American) 81.6 ml/min; Est GFR (Non-African American) 70.4 ml/min; Potassium 4.1 mmol/L (3.5-5.1)
[2020-11-14] MEDS: Scopolamine CHECK PATCH PLACEMENT SCH (07:13)
[2020-11-14] MEDS: PANTOprazole 40 MG TAB PO SCH (08:43)
[2020-11-14] MEDS: FLUTICASONE/VILANTEROL 100/25MCG 14 PUFFS/INHALER INH SCH (08:43)
[2020-11-14] MEDS: CETIRIZINE HCL 10 MG TABLET PO SCH (08:43)
[2020-11-14] MEDS: ASPIRIN 81 MG ECTAB PO SCH (08:43)
[2020-11-14] MEDS: carvediloL 3.125 MG TAB PO SCH (08:43)
[2020-11-14] MEDS: POLYETHYLENE (MIRALAX) 17 GM PACK PO SCH (08:43)
[2020-11-14] MEDS: guaiFENesin 600 MG TABCR PO SCH (08:43)
[2020-11-14] MEDS: DOCUSATE SODIUM 100 MG CAP PO SCH (08:43)
[2020-11-14] MEDS: MULTIVITAMIN TAB PO SCH (08:43)
[2020-11-14] MEDS: UMECLIDINIUM BROMIDE 62.5MCG/BLISTER 7 PUFFS/INHALER INH SCH (08:43)
== END 2020-11-14 15:54 | disposition home health service (06) ==
LOC: ASU 08:28 → 3W 08:28